=== PATIENT | male | born 1945 | race Caucasian/White ===

== ENCOUNTER 2021-09-09 11:51 | Observation (INO) ==
[2021-09-09] MEDS ORDERED: SODIUM CHLORIDE 0.9% 1000ML 1,000 ML IV ONE (12:12)
[2021-09-09] MEDS ORDERED: ACETAMINOPHEN 1,000 MG/100 ML VIAL IV STA (12:12)
[2021-09-09] MEDS ORDERED: guaiFENesin 600 MG TABCR PO STA (12:16)
[2021-09-09] MEDS ORDERED: SODIUM CHLORIDE 0.65% NA SOLN 45 ML (OCEAN) ONE (12:16)
[2021-09-09] MEDS ORDERED: KETOROLAC TROMETHAMINE 15 MG/ML VIAL IV STA (12:18)
[2021-09-09] MEDS ORDERED: ALBUTEROL HFA 8 GM INHALER INH ONE (12:20)
[2021-09-09 13:30] LABS: Basophils # (auto) 0.04 K/uL (0-0.2); Basophils % (auto) 0.5 %; Eosinophils # (auto) 0.03 K/uL (0-0.5); Eosinophils % (auto) 0.4 %; Hematocrit (blood only) 42.5 % (42-52); Hemoglobin 13.9 g/dL (14.0-18.0); Immature Granulocytes # (auto) 0.01 K/uL (0.00-0.02); Immature Granulocytes % (auto) 0.1 %; Lymphocytes # (auto) 0.44 K/uL (1.2-3.4); Lymphocytes % (auto) 5.8 %; Mean Corpuscular Hemoglobin 29.3 pg (25-34); Mean Corpuscular Hgb Conc 32.7 g/dL (32-36); Mean Corpuscular Volume 89.5 fL (80-100); Mean Platelet Volume 10.6 fL (7.4-10.4); Monocytes # (auto) 1.45 K/uL (0.11-0.59); Monocytes % (auto) 19.2 %; Neutrophils # (auto) 5.57 K/uL (1.4-6.5); Platelet Count 216 K/uL (130-400); RDW Coefficient of Variation 14.2 % (11.5-14.5); RDW Standard Deviation 46.6 fL (36.4-46.3); Red Blood Count 4.75 M/uL (4.7-6.1); White Blood Count 7.54 K/uL (4.8-10.8)
--- NOTE | 2021-09-09 13:36 | XRay Report ---
XR chest 1V portable HISTORY: 76 years-old Male Chest Pain . Acute atypical chest pain COMPARISON: CT abdomen pelvis 06/14/2021 TECHNIQUE: Portable AP view of the chest FINDINGS: The cardiac silhouette is enlarged. No pneumothorax, pleural effusion, airspace consolidation or over t pulmonary edema. Degenerative changes of the shoulders and spine. IMPRESSION: Cardiomegaly without acute process. ACT 112: Negative or not required by law. The above report was generated using voice recognition software. It may contain grammatical, syntax o r spelling errors. Electronically signed by: Roque Brower M.D. 09/09/2021 1:34 PM
[2021-09-09 13:52] LABS: Albumin Globulin Ratio 1.4 (0.9-2); Albumin Level 3.9 gm/dl (3.4-5.0); Bilirubin,Total 0.6 mg/dl (0.2-1.0); Calcium 8.9 mg/dl (8.5-10.1); Creatinine Clr Calc Pharmacy 59.7 ml/min; Est GFR (Non-African American) 73.3 ml/min; Globulin 2.7 gm/dl (2.5-4.0); Magnesium 1.7 mg/dl (1.7-2.4); Phosphorus 2.9 mg/dl (2.5-4.9); Potassium 3.8 mmol/L (3.5-5.1); Total Protein 6.6 gm/dl (6.0-8.3)
[2021-09-09 14:03] LABS: Influenza A virus by PCR Negative (Neg); Influenza B virus by PCR Negative (Neg); RSV by PCR Negative (Neg)
[2021-09-09 14:08] LABS: SARS CoV2 RNA(COVID-19) InHosp POSITIVE (Negative)
[2021-09-09] MEDS ORDERED: dexAMETHasone**PF** 10 MG/ML VIAL IV ONE (15:26)
--- NOTE | 2021-09-09 15:26 | Emergency Department Note ---
Impression & Plan COVID-19, Acute respiratory failure with hypoxia, Chronic steroid use, Polymyalgia rheumatica ED Provider Note NAME: MAYUR WILLARD JR AGE: 76 SEX: M ARRIVES VIA: Walk-In INFORMANT: Patient ED PROVIDER(S): Arnaldo Mason MD CHIEF COMPLAINT: Fever, bodyaches PLAN: Disposition: Admit MEDICAL DECISION MAKING: The patient is a pleasant 76-year-old gentleman with a past medical history of polymyalgia rheumatica on chronic prednisone who presents to the emergency department accompanied by his for evaluation of fevers with cough and congestion over the past several days. He reports initially he was concerned that he had a COVID-19 exposure but describes this as going to dinner with a family friend who had told them that he had "long COVID". Thus, it is unlikely that the patient was knowingly exposed to someone with active COVID-19 inf ection. He reports he is vaccinated for COVID with 2 dose series however did not receive his booster. On arrival patient is fatigued, uncomfortable no distress, with temperature of 37.7, heart rate in the 100s and vital signs otherwise stable. He appears clinically dry. He has mild injection of the posterior pharynx with dry-cracked mucous membranes. Abdomen is benign. EKG without overt acute ischemia. Chest x-ray negative for acute cardiopulmonary process. WBC, HCT and platelets within normal limits. There is mild lymphopenia 0.44K. Chemistry without metabolic acidosis. Electrolytes and LFTs without significant abnormality. High-sensitivity troponin 11.8, within normal limits. Lipase not elevated. Patient's COVID-19 PCR was positive. The patient did develop mild hypoxia at 88% on room air. He was placed on 2 L nasal cannula improvement to 94%. Given the patient's hypoxia in the setting of his COVID-19 infection they did agree with plan for admission. Case was discussed with Dr. Petit, [facility] [place], [facility] hospit[facility] service to evaluate the patient for admission. Triage Nursing notes reviewed and agree them. Prior medical records reviewed Vital Signs: reviewed and remarkable for tachycardia. Differential diagnosis: Viral syndrome, otitis, pharyngitis, pneumonia, influenza, meningitis, urinary tract infection, sepsis, bacteremia, as well as other pathologies. ER treatment provided: See below. Diagnostics interpreted by me: ECG: Normal sinus rhythm, 93 bpm, no ectopy, right bundle branch block, no overt ST elevation or depression, QTC 509, QRS 152 Cardiac Monitoring: An order for continuous cardiac monitoring was placed and demonstrated Normal sinus rhythm, 93 bpm, no ectopy Laboratory studies: See below Imaging studies: See below Consultation(s): Case was discussed with Dr. Petit, [facility], [facility] hospit[facility] to evaluate the patient for admission. HPI: The patient is a pleasant 76-year-old gentleman with a past medical history of polymyalgia rheumatica on chronic prednisone who presents to the emergency department accompanied by his for evaluation of fevers with cough and congestion over the past several days. He reports initially he was concerned that he had a COVID-19 exposure but describes this as going to dinner with a family friend who had told them that he had "long COVID". Thus, it is unlikely that the patient was knowingly exposed to someone with active COVID-19 infection. He reports he is vaccinated for COVID with 2 dose series however did not receive his booster. ROS: See above HPI for pertinent positives & negatives. A total of 10 systems reviewed and were otherwise negative. VITALS:See Below PHYSICAL EXAMINATION: GENERAL: Awake, alert, uncomfortable-appearing, in no distress HENT: Normocephalic, atraumatic. Oropharynx with dry-cracked mucous membranes and otherwise unremarkable. EYES: Normal conjunctiva. Sclera non-icteric. NECK: Supple. No nuchal rigidity. FROM. No JVD. RESPIRATORY: Clear to auscultation. CARDIAC: Tachycardic rate, normal rhythm. Extremities warm and well perfused. Pulses equal. ABDOMEN: Soft, non-distended. No tenderness to palpation. No rebound or guarding. No masses. RECTAL: Deferred. MUSCULOSKELETAL: Chest examination reveals no tenderness. The back is symmetrical on inspection without obvious abnormality. There is no CVA tenderness to palpation. No joint edema. LOWER EXTREMITIES: Calves are equal size bilaterally and non-tender. No edema. No discoloration. NEURO: Normal sensorium. No sensory or motor deficits noted. SKIN: No rash or jaundice noted. Arnaldo Mason MD Past Med/Surg History Medical History BPH w urinary obs/LUTS Cardiac arrhythmia Chronic steroid use Hyperlipidemia Mixed hyperlipidemia Polymyalgia rheumatica Primary hypertension Steroid-induced osteoporosis Surgical History H/O oral surgery H/O total knee replacement History of hernia repair Hx of tonsillectomy 1984 Family History Mother Myocardial infarction Father Myocardial infarction Diabetes Sister Myocardial infarction Diabetes Brother Diabetes Stroke Grandfather (Maternal) Stroke Denies family history of Ovarian cancer Prostate cancer Breast cancer Colorectal cancer Social History Smoking Status: Never smoker Second Hand Exposure: No; Hx Alcohol Use: No Hx Substance Use: No Preferred Language: Taiwanese marital status: Current Living Situation: Spouse current occupational status: retired Feels Safe at Home: Yes Childhood Exposure to Second-Hand Smoke: No Dental Care, Regularly: Yes Physical Activity Frequency: 3-4 Times per Week Seatbelt Use: always Sunscreen Use: No Allergies Allergies Allergy/AdvReac Type Severity Reaction Status Date / Time Beta-Blockers Allergy palpitation Verified 09/09/21 13:35 (Beta-Adrenergic Bloc s hydroxychloroquine Allergy severe Verified 09/09/21 13:35 [From Plaquenil] rash/ GI bleed meclofenamic acid Allergy Verified 09/09/21 13:35 [From Meclomen] tamsulosin AdvReac Intermediate blurry Verified 09/09/21 17:01 vision Home Meds Home Medications Medication Instructions Recorded Confirmed amoxicillin 500 mg capsule 500 mg PO UD PRN 07/04/21 09/09/21 fluticasone propionate 50 1 spray INTRANASAL DAILY PRN 07/04/21 09/09/21 mcg/actuation nasal spray,suspension ketoconazole 2 % topical cream 1 applic TOPICAL DAILY PRN 07/04/21 09/09/21 amlodipine 5 mg tablet 5 mg PO QAM 09/09/21 09/09/21 atorvastatin 20 mg tablet 20 mg PO HS 09/09/21 09/09/21 meloxicam 15 mg tablet 15 mg PO QAM 09/09/21 09/09/21 prednisone 2.5 mg tablet See Rx Instructions .ROUTE .COMPLEX 09/09/21 09/09/21 Previous Rx's Medication Instructions Recorded flecainide 100 mg tablet 100 mg PO Q12H #180 tab 09/05/21 lisinopril 20 mg tablet 20 mg PO BID #90 tab 09/05/21 Results & Data (ED) Vital Signs Vital Signs - 24 hr 09/09/21 12:02 09/09/21 12:54 09/09/21 13:44 Temperature 37.7 C H Temperature Source Oral Pulse Rate 104 H 81 Pulse Rate [Apical] 86 Pulse Rhythm Regular Pulse Rhythm [Apical] Regular Pulse Strength [Apical] Normal Respiratory Rate 20 18 20 Respiratory Effort / Characteristics Non-Labored Spontaneous Non-Labored Spontaneous Respiratory Depth Normal Normal Respiratory Pattern Regular Regular Blood Pressure 157/79 H Blood Pressure [Left Arm] 129/70 Blood Pressure Mean 105 Blood Pressure Mean [Left Arm] 89 Blood Pressure Position [Left Arm] Sitting Pulse Oximetry 93 91 91 Oxygen Delivery Method Room Air Room Air Room Air Oxygen Flow Rate Sepsis Recent Fever Within 48 Hours Yes Sepsis New/Unexplained Change in Mental Status No Sepsis Action Taken by Nursing No Action Required Oxygen Flow Rate - Titration Pulse Oximetry Post Tiitration 09/09/21 13:55 09/09/21 14:30 09/09/21 15:40 Temperature Temperature Source Pulse Rate Pulse Rate [Apical] 82 73 Pulse Rhythm Pulse Rhythm [Apical] Regular Regular Pulse Strength [Apical] Normal Normal Respiratory Rate 20 18 Respiratory Effort / Characteristics Non-Labored Spontaneous Non-Labored Spontaneous Respiratory Depth Normal Normal Respiratory Pattern Regular Regular Blood Pressure Blood Pressure [Left Arm] 117/67 126/69 Blood Pressure Mean Blood Pressure Mean [Left Arm] 83 88 Blood Pressure Position [Left Arm] Sitting Sitting Pulse Oximetry 88 L 92 96 Oxygen Delivery Method Nasal Cannula Nasal Cannula Nasal Cannula Oxygen Flow Rate 0 2 Sepsis Recent Fever Within 48 Hours Sepsis New/Unexplained Change in Mental Status Sepsis Action Taken by Nursing Oxygen Flow Rate - Titration 2 Pulse Oximetry Post Tiitration 96 Laboratory Data Attestation: I reviewed the patient's lab results. Result diagrams: 09/09/21 12:54 09/09/21 12:54 Lab Results 09/09/21 09/09/21 09/09/21 Range/Units 12:50 12:54 12:54 WBC 7.54 (4.8-10.8) K/uL RBC 4.75 (4.7-6.1) M/uL Hgb 13.9 L (14.0-18.0) g/dL Hct 42.5 (42-52) % MCV 89.5 (80-100) fL MCH 29.3 (25-34) pg MCHC 32.7 (32-36) g/dL RDW Std Deviation 46.6 H (36.4-46.3) fL RDW Coeff of [place] 14.2 (11.5-14.5) % Plt Count 216 (130-400) K/uL MPV 10.6 H (7.4-10.4) fL Immature Gran % (Auto) 0.1 % Neut % (Auto) 74.0 % Lymph % (Auto) 5.8 % [place] % (Auto) 19.2 % Eos % (Auto) 0.4 % Baso % (Auto) 0.5 % Neut # (Auto) 5.57 (1.4-6.5) K/uL Lymph # (Auto) 0.44 L (1.2-3.4) K/uL [place] # (Auto) 1.45 H (0.11-0.59) K/uL Eos # (Auto) 0.03 (0-0.5) K/uL Baso # (Auto) 0.04 (0-0.2) K/uL Immature Gran # (Auto) 0.01 (0.00-0.02) K/uL Sodium (136-145) mmol/L Potassium (3.5-5.1) mmol/L Chloride (98-107) mmol/L Carbon Dioxide (21-32) mmol/L Anion Gap (3-11) BUN (6-23) mg/dl Creatinine (0.6-1.4) mg/dl Est Cr Clr Drug Dosing ml/min Est GFR ( Amer) ml/min Est GFR (Non-Af Amer) ml/min BUN/Creatinine Ratio (10-20) Glucose (70-99(Fasting)) mg/dl Calcium (8.5-10.1) mg/dl Phosphorus (2.5-4.9) mg/dl Magnesium (1.7-2.4) mg/dl Total Bilirubin (0.2-1.0) mg/dl AST (13-39) U/L ALT (7-52) U/L Alkaline Phosphatase (34-104) U/L Troponin I High Sens 11.8 (0-20) pg/ml Total Protein (6.0-8.3) gm/dl Albumin (3.4-5.0) gm/dl Globulin (2.5-4.0) gm/dl Albumin/Globulin Ratio (0.9-2) Lipase (11-82) U/L Urine Color Urine Appearance (Clear) Urine pH (4.5-7.5) Ur Specific [place] (1.000-1.030) Urine Protein (Negative) Urine Glucose (UA) (Negative) Urine Ketones (Negative) Urine Blood (Negative) Urine Nitrite (Negative) Urine Bilirubin (Negative) Urine Urobilinogen (Negative) Ur Leukocyte Esterase (Negative) SARS-CoV-2 (PCR) POSITIVE A* (Negative) Influenza Type A (PCR) Negative (Neg) Influenza Type B (PCR) Negative (Neg) RSV (RT-PCR) Negative (Neg) 09/09/21 09/09/21 Range/Units 12:54 15:17 WBC (4.8-10.8) K/uL RBC (4.7-6.1) M/uL Hgb (14.0-18.0) g/dL Hct (42-52) % MCV (80-100) fL MCH (25-34) pg MCHC (32-36) g/dL RDW Std Deviation (36.4-46.3) fL RDW Coeff of [place] (11.5-14.5) % Plt Count (130-400) K/uL MPV (7.4-10.4) fL Immature Gran % (Auto) % Neut % (Auto) % Lymph % (Auto) % [place] % (Auto) % Eos % (Auto) % Baso % (Auto) % Neut # (Auto) (1.4-6.5) K/uL Lymph # (Auto) (1.2-3.4) K/uL [place] # (Auto) (0.11-0.59) K/uL Eos # (Auto) (0-0.5) K/uL Baso # (Auto) (0-0.2) K/uL Immature Gran # (Auto) (0.00-0.02) K/uL Sodium 137 (136-145) mmol/L Potassium 3.8 (3.5-5.1) mmol/L Chloride 102 (98-107) mmol/L Carbon Dioxide 26 (21-32) mmol/L Anion Gap 9 (3-11) BUN 13 (6-23) mg/dl Creatinine 1.00 (0.6-1.4) mg/dl Est Cr Clr Drug Dosing 59.7 ml/min Est GFR ( Amer) 85.0 ml/min Est GFR (Non-Af Amer) 73.3 ml/min BUN/Creatinine Ratio 13.0 (10-20) Glucose 97 (70-99(Fasting)) mg/dl Calcium 8.9 (8.5-10.1) mg/dl Phosphorus 2.9 (2.5-4.9) mg/dl Magnesium 1.7 (1.7-2.4) mg/dl Total Bilirubin 0.6 (0.2-1.0) mg/dl AST 22 (13-39) U/L ALT 18 (7-52) U/L Alkaline Phosphatase 47 (34-104) U/L Troponin I High Sens (0-20) pg/ml Total Protein 6.6 (6.0-8.3) gm/dl Albumin 3.9 (3.4-5.0) gm/dl Globulin 2.7 (2.5-4.0) gm/dl Albumin/Globulin Ratio 1.4 (0.9-2) Lipase 35 (11-82) U/L Urine Color Yellow Urine Appearance Clear (Clear) Urine pH 7.5 (4.5-7.5) Ur Specific [place] 1.007 (1.000-1.030) Urine Protein Negative (Negative) Urine Glucose (UA) Negative (Negative) Urine Ketones Negative (Negative) Urine Blood Negative (Negative) Urine Nitrite Negative (Negative) Urine Bilirubin Negative (Negative) Urine Urobilinogen Negative (Negative) Ur Leukocyte Esterase Negative (Negative) SARS-CoV-2 (PCR) (Negative) Influenza Type A (PCR) (Neg) Influenza Type B (PCR) (Neg) RSV (RT-PCR) (Neg) Administered Medications Albuterol (Albuterol Hfa 8 Gm Inhaler) 2 puffs INH TIDR YARI Stop: 10/09/21 18:59 Last Admin: 09/09/21 20:25 Dose: 2 puffs Documented by: [id number] Atorvastatin Calcium (Atorvastatin 20 Mg Tab) 20 mg PO HS YARI Stop: 10/09/21 20:59 Last Admin: 09/09/21 21:04 Dose: 20 mg Documented by: [id number] Enoxaparin Sodium (Enoxaparin Inj 40 Mg/0.4 Ml Syr) 40 mg SQ Q24H YARI Stop: 10/09/21 20:59 Last Admin: 09/09/21 21:05 Dose: 40 mg Documented by: [id number] Flecainide Acetate (Flecainide Acetate 100 Mg Tablet) 100 mg PO Q12 YARI Stop: 10/09/21 19:59 Last Admin: 09/09/21 21:04 Dose: 100 mg Documented by: [id number] Lisinopril (Lisinopril 20 Mg Tab) 20 mg PO BID YARI Stop: 10/09/21 20:59 Last Admin: 09/09/21 21:05 Dose: 20 mg Documented by: [id number] Discontinued Medications Albuterol (Albuterol Hfa 8 Gm Inhaler) 2 puffs INH NOW ONE Stop: 09/09/21 12:21 Last Admin: 09/09/21 12:55 Dose: 2 puffs Documented by: [id number] Dexamethasone Sodium Phosphate (DexamethasonePf 10 Mg/Ml Vial) 10 mg IV NOW ONE Stop: 09/09/21 15:27 Last Admin: 09/09/21 15:52 Dose: 10 mg Documented by: [id number] Guaifenesin (Guaifenesin 600 Mg Tabcr) 600 mg PO NOW STA Stop: 09/09/21 12:17 Last Admin: 09/09/21 12:55 Dose: Not Given Documented by: [id number] Sodium Chloride (Nss 1000ml) 1,000 mls @ 999 mls/hr IV .Q1H1M ONE Stop: 09/09/21 13:12 Last Infusion: 09/09/21 13:55 Dose: 0 mls/hr Documented by: [id number] Admin: 09/09/21 12:55 Dose: 999 mls/hr Documented by: [id number] Acetaminophen (Ofirmev) 1,000 mg in 100 mls @ 400 mls/hr IV NOW STA Stop: 09/09/21 12:26 Last Infusion: 09/09/21 13:14 Dose: 0 mls/hr Documented by: [id number] Admin: 09/09/21 12:54 Dose: 400 mls/hr Documented by: [id number] Remdesivir 200 mg/ Sodium (Chloride) 250 mls @ 125 mls/hr IV ONE STA; Protocol Stop: 09/09/21 18:54 Last Infusion: 09/09/21 20:53 Dose: 0 mls/hr Documented by: [id number] Admin: 09/09/21 18:10 Dose: 125 mls/hr Documented by: [id number] Ketorolac Tromethamine (Ketorolac Tromethamine 15 Mg/Ml Vial) 15 mg IV NOW STA Stop: 09/09/21 12:19 Last Admin: 09/09/21 12:54 Dose: 15 mg Documented by: [id number] Sodium Chloride (Sodium Chloride 0.65% Na Soln 45 Ml ([place])) 2 sprays NA NOW ONE Stop: 09/09/21 12:17 Last Admin: 09/09/21 12:55 Dose: 2 sprays Documented by: [id number] Imaging Data Radiologist's Impression: Chest X-Ray 09/09/21 12:13 XR chest 1V portable HISTORY: 76 years-old Male Chest Pain . Acute atypical chest pain COMPARISON: CT abdomen pelvis 06/14/2021 TECHNIQUE: Portable AP view of the chest FINDINGS: The cardiac silhouette is enlarged. No pneumothorax, pleural effusion, airspace consolidation or overt pulmonary edema. Degenerative changes of the shoulders and spine. IMPRESSION: Cardiomegaly without acute process. ACT 112: Negative or not required by law. The above report was generated using voice recognition software. It may contain grammatical, syntax or spelling errors. Electronically signed by: Roque Brower M.D. 09/09/2021 1:34 PM Discharge Plan Visit Data Chief Complaint: Fever Stated Complaint: FEVER/EXTREME FATIGUE ED Provider: Arnaldo Mason Discharge Problem: COVID-19, Acute respiratory failure with hypoxia, Chronic steroid use, Polymyalgia rheumatica Patient Disposition: Admitted As Inpatient Discharge Instructions Interventions: ED Discharge Assessment Last Done: 09/09/21 18:25
[2021-09-09 15:41] LABS: Appearance Urine Clear (Clear); Bilirubin Urine Negative (Negative); Blood Urine Negative (Negative); Color Urine Yellow; Glucose Urine UA Negative (Negative); Ketones Urine Negative (Negative); Leukocyte Esterase Urine Negative (Negative); Nitrite Urine Negative (Negative); Protein Urine Negative (Negative); Specific Gravity Urine 1.007 (1.000-1.030); Urobilinogen Urine Negative (Negative); pH Urine 7.5 (4.5-7.5)
--- NOTE | 2021-09-09 16:03 | History & Physical Report ---
Date of Service September 09, 2021 Assessment & Plan (1) Acute respiratory failure with hypoxia: Plan: Secondary to COVID-19 pneumonitis, pulse ox down to 88% with exertion prior to admission Chest x-ray without pneumonia No history of underlying lung disease Already with significant improvement with IV Decadron, albuterol -Bring in on observation to medical floor telemetry -Continue supplemental O2 to keep pulse ox greater than 90% -Treat with IV Decadron -Continue albuterol inhaler every 8 hours scheduled -Incentive spirometry, flutter valve to be provided -He will likely need a two-step walk test prior to discharge (2) COVID-19: Plan: Presents on day #3 of symptoms-symptoms started on 09/07 He has received 2 doses of COVID vaccination but not a booster He has mild hypoxia as above, nasal congestion, mild nausea without vomiting, and profound fatigue, fevers Labs only significant for lymphopenia, but LFTs normal, renal function normal -Start Remdesivir -Continue Decadron 6 mg IV once daily-this will also serve as stress dose steroids as he is on chronic prednisone -Tylenol as needed for fevers -Monitor for worsening have hypoxia -Check CBC, CMP, CRP in the morning -Continue supplemental O2 as needed to keep pulse ox greater than 90% (3) Cardiac arrhythmia: Plan: Has a history of frequent PVCs now well controlled on flecainide Continue flecainide 100 mg p.o. twice daily Monitor on telemetry Keep electrolytes replete (4) Steroid-induced osteoporosis: Plan: Not on medications for this (5) Mixed hyperlipidemia: Plan: Continue atorvastatin 20 mg at bedtime (6) Primary hypertension: Plan: Blood pressures here are controlled Continue home amlodipine 5 mg daily, lisinopril 20 mg p.o. twice daily (7) Chronic steroid use: Plan: Usually on prednisone 7.5 mg daily Giving stress to steroids and affect with Decadron 6 mg IV once daily here (8) BPH w urinary obs/LUTS: Plan: Had an allergic reaction to tamsulosin-no longer taking Will add to allergy list (9) Polymyalgia rheumatica: Plan: Continue on steroids daily Plan: DVT prophylaxis-SCDs, Lovenox SQ Disposition-bring in on observation to medical floor with telemetry, two-step walk test likely tomorrow if he is continuing to be improved and could potentially discharge home tomorrow with home oxygen Full code, but would not want prolonged life support if in a vegetative state All care discussed with at the bedside History of Present Illness Chief Complaint: Fevers, cough Primary Care Provider: Angelica Persaud MD This patient is a 76-year-old male with history of HTN, PMR on chronic steroids, hyperlipidemia, 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 He started with postnasal drip and nasal congestion 2 days ago which then improved but then he started feeling very weak, fatigued, and spiked a fever to 100.5 at home. In the ER, he was noted to be mildly tachycardic and appeared dehydrated. His blood work was fairly unremarkable except for mild lymphopenia, and his COVID-19 test was positive. He is vaccinated x2 but not boosted. He developed mild hypoxia with a pulse ox of 88% on room air and was placed on 2 L nasal cannula with improvement to 94% in the ER. His chest x-ray was negative for pneumonia. When I came to see him, he was feeling much better after the treatments given in the ER and he was 95 to 96% on room air at rest, but reported he dropped to 88% with movement with walking to the bathroom. Vital signs were otherwise normal except for a mildly elevated temperature at 37.7. He will be admitted for COVID-19 with likely pneumonitis and acute respiratory failure with hypoxia He was given albuterol, guaifenesin, Toradol, 1 L of normal saline, IV Tylenol, and 10 mg of IV Decadron in the ER. Allergies Allergy/AdvReac Type Severity Reaction Status Date / Time Beta-Blockers Allergy palpitation Verified 09/09/21 13:35 (Beta-Adrenergic Bloc s hydroxychloroquine Allergy severe Verified 09/09/21 13:35 [From Plaquenil] rash/ GI bleed meclofenamic acid Allergy Verified 09/09/21 13:35 [From Meclomen] tamsulosin AdvReac Intermediate blurry Verified 09/09/21 17:01 vision Home Medications Medication Instructions Recorded Confirmed Type amoxicillin 500 mg capsule 500 mg PO UD PRN 07/04/21 09/09/21 History fluticasone propionate 50 1 spray INTRANASAL DAILY PRN 07/04/21 09/09/21 History mcg/actuation nasal spray,suspension ketoconazole 2 % topical cream 1 applic TOPICAL DAILY PRN 07/04/21 09/09/21 History flecainide 100 mg tablet 100 mg PO Q12H #180 tab 09/05/21 09/09/21 Rx lisinopril 20 mg tablet 20 mg PO BID #90 tab 09/05/21 09/09/21 Rx amlodipine 5 mg tablet 5 mg PO QAM 09/09/21 09/09/21 History atorvastatin 20 mg tablet 20 mg PO HS 09/09/21 09/09/21 History meloxicam 15 mg tablet 15 mg PO QAM 09/09/21 09/09/21 History prednisone 2.5 mg tablet See Rx Instructions .ROUTE .COMPLEX 09/09/21 09/09/21 History Past Med/Surg History Medical History BPH w urinary obs/LUTS Cardiac arrhythmia Chronic steroid use Hyperlipidemia Mixed hyperlipidemia Polymyalgia rheumatica Primary hypertension Steroid-induced osteoporosis Surgical History H/O oral surgery H/O total knee replacement History of hernia repair Hx of tonsillectomy 1984 Family History Mother Myocardial infarction Father Myocardial infarction Diabetes Sister Myocardial infarction Diabetes Brother Diabetes Stroke Grandfather (Maternal) Stroke Denies family history of Ovarian cancer Prostate cancer Breast cancer Colorectal cancer Social History Smoking Status: Never smoker Second Hand Exposure: No; Hx Alcohol Use: Yes (Wine several times a year ) Alcohol type: wine Alcohol Intake Frequency: Monthly or Less Hx Substance Use: No Preferred Language: Urdu marital status: Current Living Situation: Spouse current occupational status: retired Feels Safe at Home: Yes Childhood Exposure to Second-Hand Smoke: No Dental Care, Regularly: Yes Physical Activity Frequency: 3-4 Times per Week Seatbelt Use: always Sunscreen Use: No Review of Systems Review of Systems: All systems reviewed & are unremarkable except as noted in HPI & below Physical Exam Constitutional: WD/WN, vitals as above Eyes: PERRL, conjunctivae normal, anicteric sclerae ENMT: external ear and nose normal, oropharynx normal Neck: trachea midline, no thyromegaly Respiratory: normal respiratory effort, lungs clear to auscultation Cardiovascular: RRR, no murmur, no edema Chest (Breasts): Chest: normal inspection of chest Gastrointestinal (Abdomen): normal bowel sounds, soft, nontender, no hepatosplenomegaly Musculoskeletal: Extremities: extremities normal to inspection; no cyanosis and no clubbing Skin: no rashes, warm and dry Neurologic: moves all extremities and awake; no focal motor deficits Psychiatric: A+Ox3, euthymic affect Lymphatic: no lymphedema Results & Data Results & Data ([facility]) Vital Signs (Past 12 Hours) Vital Signs Temp Pulse Pulse Resp BP BP Pulse Ox 09/09/21 15:40 73 18 126/69 96 09/09/21 14:30 82 20 117/67 92 09/09/21 13:55 88 L 09/09/21 13:44 81 20 91 09/09/21 12:54 86 18 129/70 91 09/09/21 12:02 37.7 C H 104 H 20 157/79 H 93 Laboratory Results 09/09/21 09/09/21 09/09/21 Range/Units 15:17 12:54 12:54 WBC 7.54 (4.8-10.8) K/uL RBC 4.75 (4.7-6.1) M/uL Hgb 13.9 L (14.0-18.0) g/dL Hct 42.5 (42-52) % MCV 89.5 (80-100) fL MCH 29.3 (25-34) pg MCHC 32.7 (32-36) g/dL RDW Std Deviation 46.6 H (36.4-46.3) fL RDW Coeff of Clark 14.2 (11.5-14.5) % Plt Count 216 (130-400) K/uL MPV 10.6 H (7.4-10.4) fL Immature Gran % (Auto) 0.1 % Neut % (Auto) 74.0 % Lymph % (Auto) 5.8 % [place] % (Auto) 19.2 % Eos % (Auto) 0.4 % Baso % (Auto) 0.5 % Neut # (Auto) 5.57 (1.4-6.5) K/uL Lymph # (Auto) 0.44 L (1.2-3.4) K/uL [place] # (Auto) 1.45 H (0.11-0.59) K/uL Eos # (Auto) 0.03 (0-0.5) K/uL Baso # (Auto) 0.04 (0-0.2) K/uL Immature Gran # (Auto) 0.01 (0.00-0.02) K/uL Sodium 137 (136-145) mmol/L Potassium 3.8 (3.5-5.1) mmol/L Chloride 102 (98-107) mmol/L Carbon Dioxide 26 (21-32) mmol/L Anion Gap 9 (3-11) BUN 13 (6-23) mg/dl Creatinine 1.00 (0.6-1.4) mg/dl Est Cr Clr Drug Dosing 59.7 ml/min Est GFR ( Amer) 85.0 ml/min Est GFR (Non-Af Amer) 73.3 ml/min BUN/Creatinine Ratio 13.0 (10-20) Glucose 97 (70-99(Fasting)) mg/dl Calcium 8.9 (8.5-10.1) mg/dl Phosphorus 2.9 (2.5-4.9) mg/dl Magnesium 1.7 (1.7-2.4) mg/dl Total Bilirubin 0.6 (0.2-1.0) mg/dl AST 22 (13-39) U/L ALT 18 (7-52) U/L Alkaline Phosphatase 47 (34-104) U/L Troponin I High Sens (0-20) pg/ml Total Protein 6.6 (6.0-8.3) gm/dl Albumin 3.9 (3.4-5.0) gm/dl Globulin 2.7 (2.5-4.0) gm/dl Albumin/Globulin Ratio 1.4 (0.9-2) Lipase 35 (11-82) U/L Urine Color Yellow Urine Appearance Clear (Clear) Urine pH 7.5 (4.5-7.5) Ur Specific [place] 1.007 (1.000-1.030) Urine Protein Negative (Negative) Urine Glucose (UA) Negative (Negative) Urine Ketones Negative (Negative) Urine Blood Negative (Negative) Urine Nitrite Negative (Negative) Urine Bilirubin Negative (Negative) Urine Urobilinogen Negative (Negative) Ur Leukocyte Esterase Negative (Negative) SARS-CoV-2 (PCR) (Negative) Influenza Type A (PCR) (Neg) Influenza Type B (PCR) (Neg) RSV (RT-PCR) (Neg) 09/09/21 09/09/21 Range/Units 12:54 12:50 WBC (4.8-10.8) K/uL RBC (4.7-6.1) M/uL Hgb (14.0-18.0) g/dL Hct (42-52) % MCV (80-100) fL MCH (25-34) pg MCHC (32-36) g/dL RDW Std Deviation (36.4-46.3) fL RDW Coeff of Clark (11.5-14.5) % Plt Count (130-400) K/uL MPV (7.4-10.4) fL Immature Gran % (Auto) % Neut % (Auto) % Lymph % (Auto) % [place] % (Auto) % Eos % (Auto) % Baso % (Auto) % Neut # (Auto) (1.4-6.5) K/uL Lymph # (Auto) (1.2-3.4) K/uL [place] # (Auto) (0.11-0.59) K/uL Eos # (Auto) (0-0.5) K/uL Baso # (Auto) (0-0.2) K/uL Immature Gran # (Auto) (0.00-0.02) K/uL Sodium (136-145) mmol/L Potassium (3.5-5.1) mmol/L Chloride (98-107) mmol/L Carbon Dioxide (21-32) mmol/L Anion Gap (3-11) BUN (6-23) mg/dl Creatinine (0.6-1.4) mg/dl Est Cr Clr Drug Dosing ml/min Est GFR ( Amer) ml/min Est GFR (Non-Af Amer) ml/min BUN/Creatinine Ratio (10-20) Glucose (70-99(Fasting)) mg/dl Calcium (8.5-10.1) mg/dl Phosphorus (2.5-4.9) mg/dl Magnesium (1.7-2.4) mg/dl Total Bilirubin (0.2-1.0) mg/dl AST (13-39) U/L ALT (7-52) U/L Alkaline Phosphatase (34-104) U/L Troponin I High Sens 11.8 (0-20) pg/ml Total Protein (6.0-8.3) gm/dl Albumin (3.4-5.0) gm/dl Globulin (2.5-4.0) gm/dl Albumin/Globulin Ratio (0.9-2) Lipase (11-82) U/L Urine Color Urine Appearance (Clear) Urine pH (4.5-7.5) Ur Specific [place] (1.000-1.030) Urine Protein (Negative) Urine Glucose (UA) (Negative) Urine Ketones (Negative) Urine Blood (Negative) Urine Nitrite (Negative) Urine Bilirubin (Negative) Urine Urobilinogen (Negative) Ur Leukocyte Esterase (Negative) SARS-CoV-2 (PCR) POSITIVE A* (Negative) Influenza Type A (PCR) Negative (Neg) Influenza Type B (PCR) Negative (Neg) RSV (RT-PCR) Negative (Neg) Diagnostic Findings Chest x-ray image personally reviewed by me and agree with the following report: Chest X-Ray 09/09/21 12:13 XR chest 1V portable HISTORY: 76 years-old Male Chest Pain . Acute atypical chest pain COMPARISON: CT abdomen pelvis 06/14/2021 TECHNIQUE: Portable AP view of the chest FINDINGS: The cardiac silhouette is enlarged. No pneumothorax, pleural effusion, airspace consolidation or overt pulmonary edema. Degenerative changes of the shoulders and spine. IMPRESSION: Cardiomegaly without acute process. ACT 112: Negative or not required by law. The above report was generated using voice recognition software. It may contain grammatical, syntax or spelling errors. Electronically signed by: Roque Brower M.D. 09/09/2021 1:34 PM ECG Additional Comments: ECG on 09/09/2021 at 1240 with normal sinus rhythm, rate 93, right bundle branch block, no old EKGs to compare to but old cardiology reports chronic RBBB Code Status & VTE Plan Code Status Full code, but would not want prolonged life support if in a vegetative state VTE Prophylaxis Plan VTE Prophylaxis will be ordered: Yes PG Care Time/CCT Total # of Minutes Spent Total Time Spent with Patient: Total time spent is greater than 50% in coordination of care (as documented) at patient's floor/unit and/or counseling patient: Coding Level of Care Code INT OBSERVATION CARE 70M LVL 3 Diagnoses BPH w urinary obs/LUTS N40.1; N13.8 Cardiac arrhythmia I49.9 Steroid-induced osteoporosis M81.8; T38.0X5A Mixed hyperlipidemia E78.2 Primary hypertension I10 Chronic steroid use Polymyalgia rheumatica M35.3 COVID-19 U07.1 Acute respiratory failure with hypoxia J96.01
[2021-09-09] MEDS ORDERED: REMDESIVIR 200 MG in SODIUM CHLORIDE 0.9% 210 ML IV STA (16:55)
[2021-09-09] MEDS ORDERED: POLYETHYLENE (MIRALAX) 17 GM PACK PO PRN (19:10)
[2021-09-09] MEDS ORDERED: ALUMINUM/MAGNESIUM SUSP 30 ML UDC PO PRN (19:10)
[2021-09-09] MEDS ORDERED: ONDANSETRON INJ 2 MG/ML 2 ML VIAL IV PRN (19:10)
[2021-09-09] MEDS ORDERED: FLUTICASONE PROPIONATE NA SPR 16 GM BTL NAE PRN (19:10)
[2021-09-09] MEDS ORDERED: ACETAMINOPHEN 325 MG TAB PO PRN (19:10)
[2021-09-09] MEDS ORDERED: MAGNESIUM HYDROXIDE SUSP 30 ML UDC PO PRN (19:10)
[2021-09-09] MEDS: ALBUTEROL HFA 8 GM INHALER INH SCH (20:25)
[2021-09-09] MEDS ORDERED: ENOXAPARIN INJ 40 MG/0.4 ML SYR SQ SCH (21:00)
[2021-09-09] MEDS ORDERED: ATORVASTATIN 20 MG TAB PO SCH (21:00)
[2021-09-09] MEDS: FLECAINIDE ACETATE 100 MG TABLET PO SCH (21:04)
[2021-09-09] MEDS: lisinopril 20 MG TAB PO SCH (21:05)
[2021-09-10 05:28] LABS: Basophils # (auto) 0.01 K/uL (0-0.2); Basophils % (auto) 0.2 %; Hematocrit (blood only) 42.8 % (42-52); Hemoglobin 14.1 g/dL (14.0-18.0); Immature Granulocytes # (auto) 0.01 K/uL (0.00-0.02); Immature Granulocytes % (auto) 0.2 %; Lymphocytes # (auto) 0.42 K/uL (1.2-3.4); Lymphocytes % (auto) 9.2 %; Mean Corpuscular Hemoglobin 29.4 pg (25-34); Mean Corpuscular Hgb Conc 32.9 g/dL (32-36); Mean Corpuscular Volume 89.4 fL (80-100); Mean Platelet Volume 10.3 fL (7.4-10.4); Monocytes % (auto) 6.6 %; Neutrophils # (auto) 3.82 K/uL (1.4-6.5); Neutrophils % (auto) 83.8 %; Platelet Count 218 K/uL (130-400); RDW Coefficient of Variation 14.1 % (11.5-14.5); RDW Standard Deviation 46.3 fL (36.4-46.3); Red Blood Count 4.79 M/uL (4.7-6.1); White Blood Count 4.56 K/uL (4.8-10.8)
[2021-09-10 05:43] LABS: Albumin Globulin Ratio 1.4 (0.9-2); Albumin Level 3.8 gm/dl (3.4-5.0); BUN Creatinine Ratio 25.6 (10-20); Bilirubin,Total 0.4 mg/dl (0.2-1.0); C Reactive Protein 1.17 mg/dl (0-0.5); Calcium 8.7 mg/dl (8.5-10.1); Creatinine Clr Calc Pharmacy 69.4 ml/min; Est GFR (African American) 98.3 ml/min; Est GFR (Non-African American) 84.8 ml/min; Globulin 2.8 gm/dl (2.5-4.0); Magnesium 1.9 mg/dl (1.7-2.4); Potassium 3.8 mmol/L (3.5-5.1); Total Protein 6.6 gm/dl (6.0-8.3)
[2021-09-10] MEDS: ALBUTEROL HFA 8 GM INHALER INH SCH ×2 (07:32→12:31)
[2021-09-10] MEDS: lisinopril 20 MG TAB PO SCH (08:00)
[2021-09-10] MEDS: FLECAINIDE ACETATE 100 MG TABLET PO SCH (08:00)
[2021-09-10] MEDS ORDERED: amLODIPine BESYLATE 5 MG TAB PO SCH (09:00)
[2021-09-10] MEDS ORDERED: MELOXICAM 7.5 MG TAB PO SCH (09:00)
[2021-09-10] MEDS ORDERED: dexAMETHasone 6 MG in SYRINGE 0 ML IV SCH (09:00)
[2021-09-10] MEDS ORDERED: REMDESIVIR 100 MG in SODIUM CHLORIDE 0.9% 230 ML IV SCH ×2 (13:00→20:00)
--- NOTE | 2021-09-10 14:30 | Discharge Summary ---
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 He started with postnasal drip and nasal congestion 2 days ago which then improved but then he started feeling very weak, fatigued, and spiked a fever to 100.5 at home. In the ER, he was noted to be mildly tachycardic and appeared dehydrated. His blood work was fairly unremarkable except for mild lymphopenia, and his COVID-19 test was positive. H e is vaccinated x2 but not boosted. He developed mild hypoxia with a pulse ox of 88% on room air and was placed on 2 L nasal cannula with improvement to 94% in the ER. His chest x-ray was negative for pneumonia. When I came to see him, he was feeling much better after the treatments given in the ER and he was 95 to 96% on room air at rest, but reported he dropped to 88% with movement with walki ng to the bathroom. Vital signs were otherwise normal except for a mildly elevated temperature at 37.7. He will be admitted for COVID-19 with likely pneumonitis and acute respiratory failure with hypoxia He was given albuterol, guaifenesin, Toradol, 1 L of normal saline, IV Tylenol, and 10 mg of IV Decadron in the ER. Principal Diagnosis COVID-19, Acute respiratory failure with hypoxia Discharge Exam Constitutional WD/WN, vitals as above Eyes PERRL, conjunctivae normal, anicteric sclerae ENMT external ear and nose normal, oropharynx normal Neck trachea midline, no thyromegaly Respiratory normal respiratory effort, lungs clear to auscultation Cardiovascular RRR, no murmur, no edema Chest (Breasts) Chest: normal inspection of chest Gastrointestinal (Abdomen) normal bowel sounds, soft, nontender, no hepatosplenomegaly Musculoskeletal Extremities: extremities normal to inspection; no cyanosis and no clubbing Skin no rashes, warm and dry Neurologic moves all extremities and awake; no focal motor deficits Psychiatric A+Ox3, euthymic affect Lymphatic no lymphedema Discharge Data Allergies Allergy/AdvReac Type Severity Reaction Status Date / Time Beta-Blockers Allergy palpitation Verified 09/09/21 13:35 (Beta-Adrenergic Bloc s hydroxychloroquine Allergy severe Verified 09/09/21 13:35 [From Plaquenil] rash/ GI bleed meclofenamic acid Allergy Verified 09/09/21 13:35 [From Meclomen] tamsulosin AdvReac Intermediate blurry Verified 09/09/21 17:01 vision Consultations 09/09/21 15:18 ED Decision to Admit Stat Hospital Course (1) Acute respiratory failure with hypoxia: Secondary to COVID-19 pneumonitis, pulse ox down to 88% with exertion prior to admission Chest x-ray without pneumonia No history of underlying lung disease Already with significant improvement with IV Decadron, albuterol Weaned off O2 and passed a 2 step walk test on day of discharge -Treated with IV Decadron and will continue 10 day course as outpatient after discharge, then return to usual home prednisone -Continue albuterol inhaler as needed at home-prescribed -Incentive spirometry, flutter valve to be provided -He will likely need a two-step walk test prior to discharge Doing well, stable for dc to home (2) COVID-19: Presents on day #3 of symptoms-symptoms started on 09/07 He has received 2 doses of COVID vaccination but not a booster He has mild hypoxia as above, nasal congestion, mild nausea without vomiting, and profound fatigue, fevers Labs only significant for lymphopenia, but LFTs normal, renal function normal -Started Remdesivir and received 2 doses prior to discharge-no need to continue after discharge -received Decadron 6 mg IV once daily-this will also serve as stress dose steroids as he is on chronic prednisone-finsih course after dc as above -Tylenol as needed for fevers (3) Cardiac arrhythmia: Has a history of frequent PVCs now well controlled on flecainide Continue flecainide 100 mg p.o. twice daily Monitor on telemetry-no arrhythmias here (4) Steroid-induced osteoporosis: Not on medications for this (5) Mixed hyperlipidemia: Continue atorvastatin 20 mg at bedtime (6) Primary hypertension: Blood pressures here are controlled Continue home amlodipine 5 mg daily, lisinopril 20 mg p.o. twice daily (7) Chronic steroid use: Usually on prednisone 7.5 mg daily Giving stress to steroids with Decadron 6 mg IV once daily here (8) BPH w urinary obs/LUTS: Had an allergic reaction to tamsulosin-no longer taking added to allergy list (9) Polymyalgia rheumatica: Continue on steroids daily DVT prophylaxis-SCDs, Lovenox SQ Disposition-stable for dc to home Total Time Total Time Spent Total Time Spent (In Minutes): 35 min Discharge Plan Discharge Items Patient Disposition: Home - Self-Care Reason For Visit: COVID 19 HYPOXIA Discharge Diagnosis: COVID-19 Pneumonitis, Acute respiratory failure with hypoxia Condition on Discharge: Good Activity: Resume your previous activity Non-emergency contact: Primary Care Provider Call non-emergency contact if: you have any medication questions and your symptoms worsen Follow-up/Referrals: Angelica Persaud MD [Primary Care Provider] - (PLEASE CALL YOUR PRIMARY CARE PROVIDER TO SCHEDULE A DISCHARGE FOLLOW-UP APPOINTMENT WITHIN 7-10 DAYS.) Diet: Heart Healthy Addtl Attending Provider Instructions: Please finish out 8 more days of the dexamethasone and then revert back to your usual prednisone dosing. You can use the albuterol inhaler every 6 hours as needed for cough or shortness of breath. You can take Tylenol as needed for fevers. Please continue to check your oxygen saturation levels at home with your pulse oximeter. If your levels go below 88%, please return to the hospital. If you develop worsening shortness of breath, leg swelling, chest pains, or any other acute concerns, please return to the hospital. Continue to walk around frequently to prevent blood clots from forming. You should remain isolated for one more week in quarantine. You did not need oxygen on the day of discharge. Follow up with your PCP in 1-2 weeks. Pending Studies at Discharge: No Stand-Alone Forms: My [facility] Medications and DC Order Prescriptions: New albuterol sulfate [Ventolin HFA] 90 mcg/actuation Hfa Aerosol Inhaler 2 puff inhalation Q6H PRN (Reason: shortness of breath or wheezing) Qty: 8.5 RF: 0 acetaminophen 325 mg Tablet 650 mg PO Q4H PRN (Reason: fever or pain) Qty: 30 RF: 0 dexamethasone 6 mg tablet 6 mg PO DAILY Qty: 8 RF: 0 Continued lisinopril 20 mg tablet 20 mg PO BID Qty: 90 RF: 3 flecainide 100 mg tablet 100 mg PO Q12H Qty: 180 RF: 3 ketoconazole 2 % cream 1 applic topical DAILY PRN (Reason: Rash) RF: 0 fluticasone propionate 50 mcg/actuation spray,suspension 1 spray intranasal DAILY PRN (Reason: Congestion) RF: 0 amoxicillin 500 mg capsule 500 mg PO UD PRN (Reason: dental appointments) RF: 0 atorvastatin 20 mg tablet 20 mg PO HS RF: 0 meloxicam 15 mg tablet 15 mg PO QAM RF: 0 amlodipine 5 mg tablet 5 mg PO QAM RF: 0 prednisone 2.5 mg tablet See Rx Instructions .ROUTE .COMPLEX RF: 0 Discharge Orders: Discharge Order (Routine); Ordered 09/10/21 Ordered By: Tracee Vasquez Admission Data Admit Date/Time: 09/09/21 16:55 Attending Provider: Tracee Vasquez Admit Provider: Tracee Vasquez Primary Care Provider: Angelica Persaud Other Providers: Tim Petit Other Interventions: Discharge Summary Assessment (RN) Last Done: 09/10/21 13:38 Coding Level of Care Code 78232 OBS Care - Discharge Diagnoses Acute respiratory failure with hypoxia J96.01 COVID-19 U07.1 Cardiac arrhythmia I49.9 Steroid-induced osteoporosis M81.8; T38.0X5A Mixed hyperlipidemia E78.2 Primary hypertension I10 Chronic steroid use BPH w urinary obs/LUTS N40.1; N13.8 Polymyalgia rheumatica M35.3
--- NOTE | 2021-09-10 22:13 | Electrocardiogram Report ---
Test Reason : Blood Pressure : / mmHG Vent. Rate : 093 BPM Atrial Rate : 093 BPM P-R Int : 156 ms QRS Dur : 152 ms QT Int : 410 ms P-R-T Axes : 036 101 017 degrees QTc Int : 509 ms Normal sinus rhythm Right bundle branch block Abnormal ECG No previous ECGs available Confirmed by Rex Camejo ([id number]) on 09/10/2021 10:12:58 PM Referred By: REFERRED SELF Confirmed By:Rex Camejo
== END 2021-09-10 15:07 | disposition home or self-care (01) ==
LOC: 2N 11:51 → ED 11:51 → 2N 18:25

== ENCOUNTER 2023-09-01 09:32 | Observation (INO) ==
[2023-09-01 10:28] LABS: Basophils # (auto) 0.03 K/uL (0.00-0.20); Basophils % (auto) 0.3 %; Eosinophils % (auto) 1.1 %; Hematocrit (blood only) 45.1 % (42.0-52.0); Hemoglobin 14.6 g/dl (14.0-18.0); Immature Granulocytes # (auto) 0.04 K/uL (0.01-0.20); Immature Granulocytes % (auto) 0.4 %; Lymphocytes # (auto) 0.82 K/uL (1.20-3.40); Lymphocytes % (auto) 9.2 %; Mean Corpuscular Hemoglobin 29.4 pg (25.0-34.0); Mean Corpuscular Hgb Conc 32.4 g/dL (32.0-36.0); Mean Corpuscular Volume 90.7 fL (80.0-100.0); Mean Platelet Volume 10.7 fL (9.4-12.4); Monocytes # (auto) 0.95 K/uL (0.11-0.59); Monocytes % (auto) 10.7 %; Neutrophils # (auto) 6.98 K/uL (1.40-6.50); Neutrophils % (auto) 78.3 %; Platelet Count 211 K/uL (130-400); RDW Standard Deviation 46.8 fL (36.4-46.3); Red Blood Count 4.97 M/uL (4.70-6.10); White Blood Count 8.92 K/ul (4.8-10.8)
[2023-09-01 10:50] LABS: Albumin Level 3.9 gm/dl (3.4-5.0); BUN Creatinine Ratio 15.5 (10-20); Bilirubin Direct 0.1 mg/dl (0-0.2); Bilirubin,Total 0.6 mg/dl (0.2-1.0); Calcium 8.8 mg/dl (8.6-10.3); Creatinine Clr Calc Pharmacy 61.7 ml/min; Est GFR (African American) 86.9 ml/min; Potassium 3.8 mmol/L (3.5-5.1); Total Protein 6.9 gm/dl (6.0-8.3)
[2023-09-01 10:53] LABS: INR 0.9 (0.9-1.1); Partial Thromboplastin Time 29 Seconds (21-31); Prothrombin Time 10.3 Seconds (9.0-12.0)
--- NOTE | 2023-09-01 10:53 | Electrocardiogram Report ---
Test Reason : Blood Pressure : / mmHG Vent. Rate : 080 BPM Atrial Rate : 080 BPM P-R Int : 164 ms QRS Dur : 166 ms QT Int : 452 ms P-R-T Axes : 052 099 016 degrees QTc Int : 521 ms Normal sinus rhythm Right bundle branch block Abnormal ECG When compared with ECG of 15-JUN-2023 01:36, No significant change was found Confirmed by Elvis Kaiser ([id number]) on 09/01/2023 10:53:18 AM Referred By: Confirmed By:Elvis Kaiser
--- NOTE | 2023-09-01 11:13 | XRay Report ---
CHEST AND ABDOMEN 2 VIEWS HISTORY: cough constipation COMPARISON: Abdomen and pelvis CT 06/17/2023. FINDINGS: The cardiac silhouette remains mildly enlarged. The lungs are clear. No pleural effusions. No pneumothorax. No acute fractures. No pneumoperitoneum. No pneumatosis. Mild S-shaped scoliosis and degenerative changes within the lumbar spine. No dilated loops of bowel to suggest an obstruction. V ascular calcifications are noted. No renal or ureteral calculi. No significant fecal retention. IMPRESSION: No acute cardiopulmonary process. No evidence for bowel obstruction. ACT 112: Negative or not required by law. Electronically signed by: Wyatt Feliciano M.D. 09/01/2023 11:12 AM
[2023-09-01 11:36] LABS: Adenovirus PCR Not Detected (NotDetected); Bordetella parapertussis PCR Not Detected (NotDetected); Bordetella pertussis PCR Not Detected (NotDetected); Chlamydia pneumoniae PCR Not Detected (NotDetected); Coronavirus 229E PCR Not Detected (NotDetected); Coronavirus CoV-2 (COVID19)PCR Not Detected (NotDetected); Coronavirus HKU1 PCR Not Detected (NotDetected); Coronavirus NL63 PCR Not Detected (NotDetected); Coronavirus OC43PCR Not Detected (NotDetected); Human Metapneumovirus PCR Not Detected (NotDetected); Influenza A PCR Not Detected (NotDetected); Influenza B PCR Not Detected (NotDetected); Mycoplasma pneumoniae PCR Not Detected (NotDetected); Parainfluenza Virus 1 PCR Not Detected (NotDetected); Parainfluenza Virus 2 PCR Not Detected (NotDetected); Parainfluenza Virus 3 PCR DETECTED (NotDetected); Parainfluenza Virus 4 PCR Not Detected (NotDetected); Respiratory Syncytial VirusPCR Not Detected (NotDetected); Rhinovirus/Enterovirus PCR Not Detected (NotDetected)
--- NOTE | 2023-09-01 13:58 | History & Physical Report ---
Date of Service September 01, 2023 Assessment & Plan (1) Hematochezia: Plan: BRB and mucousy stool every 20 to 30 minutes on the evening of 08/30; abdominal cramping and nausea just prior to this Hgb 14.6 on arrival Hx of rectal bleeds with the last being 3 years ago Recent colonoscopy on 07/16/2023 revealed internal hemorrhoids, and diverticulosis in the sigmoid colon Suspect this could be an acute aggravation of either the diverticulosis in the setting of viral infection, or internal hemorrhoids Hold meloxicam Trend H&H q6h Gentle IVF with LR at 80mL/hr x 2 Clear liquid diet for now advance as tolerated No hx of blood transfusion Type and screen; blood informed consent obtained if needed A.m. CBC, BMP, mag (2) Parainfluenza: Plan: Cough, fever, and URI symptoms started last week Parainfluenza (+) on arrival Supportive care Acetaminophen as needed for pain/fever (3) Mixed hyperlipidemia: Plan: Continue atorvastatin (4) Polymyalgia rheumatica: Plan: Continue daily steroids (5) Cardiac arrhythmia: Plan: Hx of cardiac arrhythmia Continue flecainide; caution use of QT prolonging agents Continuous telemetry monitoring (6) Internal hemorrhoids: (7) Diverticulosis: Plan [facility]: [facility] Clear liquid diet for now and advance as tolerated VTE PPx: SCDs (hold chemical DVT PPx in setting of hematochezia) History of Present Illness Chief Complaint: Rectal bleed Primary Care Provider: Angelica Persaud MD Richard is a 78-year-old male with PMH of HFrEF, osteoarthritis, PMR, steroid- induced osteoporosis, cardiomyopathy, rectal bleeding, IBS, HTN, and HLD. He presented for BRB in rectum every 30 minutes starting just before midnight on 08/30. Patient reports there was very little stool with these episodes of bleeding, and it was mainly just bright red blood and mucus in the toilet. Patient has had ongoing GI problems over the past 3 months (difficulty with bowel movements in June), but this is the first episode of bright red blood in the toilet. He does have a history of rectal bleeding x 2, with the last occurring 3 years ago, and the first occurring 12 years ago. It was unclear what precipitated this in the past. Patient did have a recent colonoscopy with Dr. De Leon in July 2023 which revealed diverticulosis and internal hemorrhoids. At present, patient endorses an intermittent burning sensation in his lower ab domen. He describes it as cramping rather than pain. He has taken famotidine recently, but this does not help with the cramping. Patient took all of his regular morning medications except for Augmentin and meloxicam. He started on Augmentin on Tuesday 08/29 for presumed URI, wet cough, and fever. He was negative for COVID, flu, and RSV at that time. Besides starting Augmentin, his only change recent medications was changing from lactulose to a generic last week. He takes lactulose for pain/discomfort when he is unable to move his bowels. He denies a history of smoking, tobacco use, and recent alcohol use. Patient is mildly hypertensive at 144 over 76 at time of admission; SpO2 93% on RA. ED course: ROS: Patient endorses low-grade fever (resolved), chills (resolved yesterday), wet cough, dizziness (secondary to inner ear problems), burning sensation and cramping in lower stomach bilaterally, nausea, and BRB in stool last night. Patient denies LOCKHART, chest pain, pleuritic CP, chest palpitations, SOB, vomiting, hematemesis, melena, dysuria, burning with urination, blood in the urine/stool, or N/T in arms or legs. Allergies Allergy/AdvReac Type Severity Reaction Status Date / Time Beta-Blockers Allergy palpitation Verified 08/30/23 09:33 (Beta-Adrenergic Bloc s hydroxychloroquine Allergy severe Verified 08/30/23 09:33 [From Plaquenil] rash/ GI bleed meclofenamic acid Allergy Unknown Verified 08/30/23 09:33 [From Meclomen] Home Medications Medication Instructions Recorded Confirmed Type amoxicillin 500 mg capsule 5,000 mg PO UD PRN dental 05/15/22 09/01/23 History appointments lisinopril 20 mg tablet 20 mg PO BID #180 tabs 07/30/22 09/01/23 Rx fluticasone propionate 50 1 spray intranasal DAILY PRN 08/28/22 09/01/23 Rx mcg/actuation nasal allergic rhinitis #16 grams spray,suspension amlodipine 5 mg tablet 5 mg PO QAM #90 tabs 05/20/23 09/01/23 Rx meloxicam 15 mg tablet 15 mg PO QAM #90 tabs 05/20/23 09/01/23 Rx prednisone 2.5 mg tablet 2.5 mg PO BID #180 tabs 05/20/23 09/01/23 Rx betamethasone dipropionate 0.05 % 1 applic topical DAILY PRN flares 06/14/23 09/01/23 History lotion atorvastatin 40 mg tablet 40 mg PO HS 06/17/23 09/01/23 History calcium carbonate-vitamin D3 600 1 tab PO QAM 06/17/23 09/01/23 History mg-125 unit tablet cholecalciferol (vitamin D3) 50 50 mcg PO BID 06/17/23 09/01/23 History mcg (2,000 unit) tablet (Vitamin D3) tamsulosin 0.4 mg capsule 0.4 mg PO HS 06/17/23 09/01/23 History flecainide 100 mg tablet 100 mg PO Q12H #180 tabs 06/27/23 09/01/23 Rx alendronate 70 mg tablet 70 mg PO Q7D 07/02/23 09/01/23 History famotidine 40 mg tablet 40 mg PO DAILY 08/20/23 09/01/23 History lactulose 10 gram oral packet 10 g PO TID #270 ea 08/20/23 09/01/23 Rx ketoconazole 2 % shampoo 1 applic topical .COMPLEX #120 mL 08/26/23 09/01/23 Rx lactulose 10 gram/15 mL oral 15 ml PO TID 30 days #1,350 mL 08/26/23 09/01/23 Rx solution amoxicillin 875 mg-potassium 1 tab PO BID #14 tabs 08/30/23 09/01/23 Rx clavulanate 125 mg tablet Past Med/Surg History Medical History History of anesthesia reaction "was given beta hilario under anesthesia and had allergic reaction">no trouble w/prior colonoscopies Anxiety Chronic HFrEF (heart failure with reduced ejection fraction) Osteoarthritis Chronic steroid use Polymyalgia rheumatica BPH w urinary obs/LUTS Cardiac arrhythmia currently on flecainidef/u [facility] cardi[facility] Steroid-induced osteoporosis Mixed hyperlipidemia Primary hypertension Surgical History History of esophagogastroduodenoscopy (EGD) Hx of colonoscopy H/O oral surgery H/O total knee replacement rt/lt History of hernia repair Hx of tonsillectomy 1984 Family History Mother Myocardial infarction Heart disease Father Myocardial infarction Diabetes Sister Myocardial infarction Diabetes Brother Diabetes Stroke Grandfather (Maternal) Stroke Hypertension Denies family history of Ovarian cancer Prostate cancer Breast cancer Colorectal cancer Social History Smoking Status: Never smoker Second Hand Exposure: No; Do You Dip or Chew Tobacco: No; Hx Alcohol Use: No Hx Substance Use: No Preferred Language: Tajik Communication Ability: Effective Wellness Trainer Required: No Beliefs That Will Affect Care: None marital status: Current Living Situation: Spouse current occupational status: retired How many Children do You have: 2 Feels Safe at Home: Yes Childhood Exposure to Second-Hand Smoke: No during the past year weight has: remained stable Dental Care, Regularly: Yes Physical Activity Frequency: 3-4 Times per Week Seatbelt Use: always Sunscreen Use: No Assistive Devices: Hearing Aid - Bilateral Review of Systems Review of Systems: See HPI above Physical Exam Physical Exam: General: no acute distress; pleasant affect; non-toxic appearing; well- nourished; cooperative; 93% SpO2 on RA HEENT: normocephalic, atraumatic; no scleral icterus; PERRLA; moist mucus membrane; vision intact; hearing aids in place Neck: supple; no lymphadenopathy; trachea midline Skin: warm, dry without signs of tenting; no cyanosis; no rashes, bruising, lesions, or erythema noted CV: chest wall NTP; RRR; S1/S2 normal; no murmurs/rubs/gallops; pulses intact and symmetric at radial, DP, and PT Lungs: no acute respiratory distress; symmetrical chest wall expansion; clear breath sounds across all lung mccarthy w/o adventitious sounds; no wheezing ABD: Soft, LLQ is mildly tender to palpation; BS present; no rebound/guarding; no distention; no signs of active bleeding or bruising on the abdomen or flank MSK: no tics or fasciculations; no edema noted in the LEs b/l, nonerythematous Neuro: A&Ox3; normal mood and affect; fluent speech; no focal deficits; sensation grossly intact in the LEs b/l Results & Data Results & Data Vital Signs (Past 12 Hours) Vital Signs Temp Pulse Pulse Resp BP BP Pulse Ox 09/01/23 13:00 72 18 144/76 H 93 09/01/23 11:29 69 17 122/67 91 09/01/23 10:19 72 09/01/23 09:58 76 17 96 09/01/23 09:58 74 18 150/83 H 97 09/01/23 09:33 36.6 C 86 18 107/68 96 O2 Del Method 09/01/23 13:00 Room Air 09/01/23 11:29 Room Air 09/01/23 10:19 09/01/23 09:58 Room Air 09/01/23 09:58 Room Air 09/01/23 09:33 Laboratory Results Abnormal lab results 09/01/23 09/01/23 Range/Units 09:55 10:26 RDW Std Deviation 46.8 H (36.4-46.3) fL Neut # (Auto) 6.98 H (1.40-6.50) K/uL Lymph # (Auto) 0.82 L (1.20-3.40) K/uL [place] # (Auto) 0.95 H (0.11-0.59) K/uL Parainfluenza 3 (PCR) DETECTED A (NotDetected) Diagnostic Findings Chest/Abdomen X-ray 09/01/23 10:19 CHEST AND ABDOMEN 2 VIEWS HISTORY: cough constipation COMPARISON: Abdomen and pelvis CT 06/17/2023. FINDINGS: The cardiac silhouette remains mildly enlarged. The lungs are clear. No pleural effusions. No pneumothorax. No acute fractures. No pneumoperitoneum. No pneumatosis. Mild S-shaped scoliosis and degenerative changes within the lumbar spine. No dilated loops of bowel to suggest an obstruction. Vascular calcifications are noted. No renal or ureteral calculi. No significant fecal retention. IMPRESSION: No acute cardiopulmonary process. No evidence for bowel obstruction. ACT 112: Negative or not required by law. Electronically signed by: Wyatt Feliciano M.D. 09/01/2023 11:12 AM ECG Additional Comments: ECG revealed NSR at 80 bpm and RBBB; QTc 521 (caution use of QT prolonging agents) Code Status & VTE Plan Code Status Full code VTE Prophylaxis Plan VTE Prophylaxis will be ordered: Yes Supervising Physician Co-Signing Physician Notes The patient was seen by me. The chart was reviewed. Case discussed with MEKA Hairston. Agree with assessment and plan PG Care Time/CCT Total # of Minutes Spent Total Time Spent with Patient: Total time spent is greater than 50% in coordination of care (as documented) at patient's floor/unit and/or counseling patient: Coding [place] [address] INT INP/OBS CARE 2/55MIN Patient Type Established Medical Decision Making Moderate Complexity Diagnoses Hematochezia K92.1 Parainfluenza B34.8 Mixed hyperlipidemia E78.2 Polymyalgia rheumatica M35.3 Cardiac arrhythmia I49.9 Internal hemorrhoids K64.8 Diverticulosis K57.90
--- NOTE | 2023-09-01 14:56 | Emergency Department Note ---
History of Present Illness General Chief complaint: Rectal Bleed Stated complaint: RECTAL BLEEDING Time Seen by Provider: 09/01/23 09:45 History of Present Illness Provider Complaint: + gross hematochezia Onset (ago): 1 day(s) Pain Consistency: + constant Context: + history of GI bleed, + hemorrhoids and + medication/supplement use (Recently put on amoxicillin for a URI after his COVID RSV and influenza screen came back negative by his PCP); no liver disease, no known esophageal varices or no anticoagulant use Associated symptoms: no abdominal pain, no nausea, no vomiting, no epistaxis, no fever, no chills, no headaches, no rash or no shortness of breath Home Medications Medication Instructions Recorded Confirmed Type amoxicillin 500 mg capsule 5,000 mg PO UD PRN dental 05/15/22 09/01/23 History appointments lisinopril 20 mg tablet 20 mg PO BID #180 tabs 07/30/22 09/01/23 Rx fluticasone propionate 50 1 spray intranasal DAILY PRN 08/28/22 09/01/23 Rx mcg/actuation nasal allergic rhinitis #16 grams spray,suspension amlodipine 5 mg tablet 5 mg PO QAM #90 tabs 05/20/23 09/01/23 Rx meloxicam 15 mg tablet 15 mg PO QAM #90 tabs 05/20/23 09/01/23 Rx prednisone 2.5 mg tablet 2.5 mg PO BID #180 tabs 05/20/23 09/01/23 Rx betamethasone dipropionate 0.05 % 1 applic topical DAILY PRN flares 06/14/23 09/01/23 History lotion atorvastatin 40 mg tablet 40 mg PO HS 06/17/23 09/01/23 History calcium carbonate-vitamin D3 600 1 tab PO QAM 06/17/23 09/01/23 History mg-125 unit tablet cholecalciferol (vitamin D3) 50 50 mcg PO BID 06/17/23 09/01/23 History mcg (2,000 unit) tablet (Vitamin D3) tamsulosin 0.4 mg capsule 0.4 mg PO HS 06/17/23 09/01/23 History flecainide 100 mg tablet 100 mg PO Q12H #180 tabs 06/27/23 09/01/23 Rx alendronate 70 mg tablet 70 mg PO Q7D 07/02/23 09/01/23 History famotidine 40 mg tablet 40 mg PO DAILY 08/20/23 09/01/23 History lactulose 10 gram oral packet 10 g PO TID #270 ea 08/20/23 09/01/23 Rx ketoconazole 2 % shampoo 1 applic topical .COMPLEX #120 mL 08/26/23 09/01/23 Rx lactulose 10 gram/15 mL oral 15 ml PO TID 30 days #1,350 mL 08/26/23 09/01/23 Rx solution amoxicillin 875 mg-potassium 1 tab PO BID #14 tabs 08/30/23 09/01/23 Rx clavulanate 125 mg tablet Allergies Allergy/AdvReac Type Severity Reaction Status Date / Time Beta-Blockers Allergy palpitation Verified 08/30/23 09:33 (Beta-Adrenergic Bloc s hydroxychloroquine Allergy severe Verified 08/30/23 09:33 [From Plaquenil] rash/ GI bleed meclofenamic acid Allergy Unknown Verified 08/30/23 09:33 [From Meclomen] Past Med/Surg History Medical History History of anesthesia reaction "was given beta hilario under anesthesia and had allergic reaction">no trouble w/prior colonoscopies Anxiety Chronic HFrEF (heart failure with reduced ejection fraction) Osteoarthritis Chronic steroid use Polymyalgia rheumatica BPH w urinary obs/LUTS Cardiac arrhythmia currently on flecainidef/u [facility] cardiology Steroid-induced osteoporosis Mixed hyperlipidemia Primary hypertension Surgical History History of esophagogastroduodenoscopy (EGD) Hx of colonoscopy H/O oral surgery H/O total knee replacement rt/lt History of hernia repair Hx of tonsillectomy 1984 Family History Mother Myocardial infarction Heart disease Father Myocardial infarction Diabetes Sister Myocardial infarction Diabetes Brother Diabetes Stroke Grandfather (Maternal) Stroke Hypertension Denies family history of Ovarian cancer Prostate cancer Breast cancer Colorectal cancer Social History Smoking Status: Never smoker Second Hand Exposure: No; Do You Dip or Chew Tobacco: No; Hx Alcohol Use: No Hx Substance Use: No Preferred Language: Greek Communication Ability: Effective [employer] Required: No Beliefs That Will Affect Care: None marital status: Current Living Situation: Spouse current occupational status: retired How many Children do You have: 2 Feels Safe at Home: Yes Childhood Exposure to Second-Hand Smoke: No during the past year weight has: remained stable Dental Care, Regularly: Yes Physical Activity Frequency: 3-4 Times per Week Seatbelt Use: always Sunscreen Use: No Assistive Devices: Hearing Aid - Bilateral Physical Exam 2 Vital Signs: Vital Signs - 24 hr 09/01/23 09:33 09/01/23 09:58 09/01/23 09:58 Temperature 36.6 C Temperature Source Temporal Artery Sc an Pulse Rate 86 76 Pulse Rate [Apical ] 74 Pulse Strength [Ap ical] Respiratory Rate 18 18 17 Respiratory Effort / Characteristics Non-Labored Sponta neous Respiratory Depth Normal Respiratory Patter n Blood Pressure 107/68 Blood Pressure [Ri ght Arm] 150/83 H Blood Pressure Iris n 81 Blood Pressure Iris n [Right Arm] 105 Blood Pressure Pos ition [Right Arm] Semi-fowlers Pulse Oximetry 96 97 96 Oxygen Delivery Me thod Room Air Room Air Sepsis Recent Feve r Within 48 Hours No Sepsis New/Unexpla ined Change in Men nickie Status N/A Sepsis Action Take n by Nursing No Action Required 09/01/23 10:19 09/01/23 11:29 09/01/23 13:00 Temperature Temperature Source Pulse Rate 72 Pulse Rate [Apical ] 69 72 Pulse Strength [Ap ical] Respiratory Rate 17 18 Respiratory Effort / Characteristics Non-Labored Sponta neous Non-Labored Sponta neous Respiratory Depth Normal Normal Respiratory Patter n Blood Pressure Blood Pressure [Ri ght Arm] 122/67 144/76 H Blood Pressure Iris n Blood Pressure Iris n [Right Arm] 85 98 Blood Pressure Pos ition [Right Arm] Semi-fowlers Semi-fowlers Pulse Oximetry 91 93 Oxygen Delivery Me thod Room Air Room Air Sepsis Recent Feve r Within 48 Hours Sepsis New/Unexpla ined Change in Men nickie Status Sepsis Action Take n by Nursing 09/01/23 15:47 09/01/23 15:49 Temperature Temperature Source Pulse Rate 74 Pulse Rate [Apical ] 72 Pulse Strength [Ap ical] Normal Respiratory Rate 19 Respiratory Effort / Characteristics Non-Labored Sponta neous Respiratory Depth Normal Respiratory Patter n Regular Blood Pressure Blood Pressure [Ri ght Arm] 166/81 H Blood Pressure Iris n Blood Pressure Iris n [Right Arm] 109 Blood Pressure Pos ition [Right Arm] Pulse Oximetry 93 Oxygen Delivery Me thod Room Air Sepsis Recent Feve r Within 48 Hours Sepsis New/Unexpla ined Change in Men nickie Status Sepsis Action Take n by Nursing Physical Exam: Physical Exam GENERAL: She is oriented to person, place, and time. She appears well-developed and well-nourished. She does not appear distressed. HENT: Exam performed. -Head: Normocephalic and atraumatic. -Right Ear: External ear normal. No mastoid erythema -Left Ear: External ear normal. No mastoid erythema -Mouth/Throat: The oropharynx is clear and moist. No trismus in the jaw. No dental abscesses or uvula swelling. No oropharyngeal exudate or tonsillar abscesses. EYES: Conjunctivae and EOM are normal.Right eye exhibits no discharge. Left eye exhibits no discharge. No scleral icterus. NECK: Normal range of motion. Neck supple. No JVD present. No tracheal deviation and normal range of motion present. CV: Normal rate, regular rhythm, normal heart sounds and intact distal pulses. There is no peripheral edema. Palpable radial pulses bue. PULM/CHEST: Effort normal and breath sounds normal. No respiratory distress. No stridor. She has no wheezes. She has no rales. -Chest Wall: She exhibits no tenderness. ABD: The abdomen is soft. Bowel sounds are normal. She has no distension. No mass is present. There is no tenderness. There is no rebound, no guarding, no Cerna's sign and no tenderness at McBurney's point. Rovsig negative MUSC/SKEL: Normal range of motion. There is no peripheral edema, tenderness or deformity. NEURO: Motor and sensation grossly intact. SKIN: Skin is warm and dry. She is not diaphoretic. PSYCH: She has a normal mood and affect. Behavior is normal. Judgment and thought content normal. Course Course 944: The patient was evaluated in room C6. A complete history and physical exam was performed Cardiac monitoring: An order was placed for continuous cardiac monitoring. The monitor shows a rate of 80 with sinus rhythm interpreted by me 1320: Vital signs stable. Labs within normal limits. Patient has parainfluenza. Patient was told he could stop taking the amoxicillin. It is thought that the patient is having diverticular bleed which could be triggered by excessive bowel movements since patient's been on amoxicillin prescribed by his PCP. Discussed with patient about inpatient observation versus outpatient follow-up. Patient elects for outpatient follow-up which I think is reasonable. Patient was told to stop taking the amoxicillin as he has a viral illness. He was informed to take probiotics and eat yogurt. DISCHARGE - Plan of care discussed with patient and questions answered. The patient was given both verbal and printed discharge instructions. The patient verbalized understanding and ability to comply. The patient is to seek outpatient follow up as noted in the discharge instructions. The patient verbalized understanding and ability to comply. The patient is discharged in stable condition. The patient was instructed to return for worsening symptoms. 1340: Vital signs stable. Nursing now informs me that the patient wants to be admitted for GI bleed. Will contact [facility] hospitalist team. Administered Medications Lactated Ringer's (Lr) 1,000 mls @ 80 mls/hr IV .[id number] YARI Stop: 09/02/23 15:29 Last Admin: 09/01/23 14:57 Dose: 80 mls/hr Documented By: [facility] Medical Decision Making Laboratory Data Attestation: I reviewed the patient's lab results. 09/01/23 09:55 09/01/23 09:55 Lab Results 09/01/23 09/01/23 Range/Units 09:55 10:26 WBC 8.92 (4.8-10.8) K/ul RBC 4.97 (4.70-6.10) M/uL Hgb 14.6 (14.0-18.0) g/dl Hct 45.1 (42.0-52.0) % MCV 90.7 (80.0-100.0) fL MCH 29.4 (25.0-34.0) pg MCHC 32.4 (32.0-36.0) g/dL RDW Std Deviation 46.8 H (36.4-46.3) fL RDW Coeff of Clark 14.0 (11.5-14.5) % Plt Count 211 (130-400) K/uL MPV 10.7 (9.4-12.4) fL Immature Gran % (Auto) 0.4 % Neut % (Auto) 78.3 % Lymph % (Auto) 9.2 % [place] % (Auto) 10.7 % Eos % (Auto) 1.1 % Baso % (Auto) 0.3 % Neut # (Auto) 6.98 H (1.40-6.50) K/uL Lymph # (Auto) 0.82 L (1.20-3.40) K/uL [place] # (Auto) 0.95 H (0.11-0.59) K/uL Eos # (Auto) 0.10 (0.00-0.50) K/uL Baso # (Auto) 0.03 (0.00-0.20) K/uL Immature Gran # (Auto) 0.04 (0.01-0.20) K/uL PT 10.3 (9.0-12.0) Seconds INR 0.9 (0.9-1.1) APTT 29 (21-31) Seconds PTT Ratio 1.0 Sodium 139 (136-145) mmol/L Potassium 3.8 (3.5-5.1) mmol/L Chloride 105 (98-107) mmol/L Carbon Dioxide 24 (21-32) mmol/L Anion Gap 10 (3-11) BUN 15 (6-23) mg/dl Creatinine 0.97 (0.6-1.4) mg/dl Est Cr Clr Drug Dosing 61.7 ml/min Est GFR ( Amer) 86.9 ml/min Est GFR (Non-Af Amer) 75.0 ml/min BUN/Creatinine Ratio 15.5 (10-20) Glucose 96 (70-99(Fasting)) mg/dl Calcium 8.8 (8.6-10.3) mg/dl Total Bilirubin 0.6 (0.2-1.0) mg/dl Direct Bilirubin 0.1 (0-0.2) mg/dl AST 26 (13-39) U/L ALT 27 (7-52) U/L Alkaline Phosphatase 65 (34-104) U/L Total Protein 6.9 (6.0-8.3) gm/dl Albumin 3.9 (3.4-5.0) gm/dl Lipase 20 (11-82) U/L Adenovirus (PCR) Not Detected (NotDetected) B. pertussis DNA (PCR) Not Detected (NotDetected) B.parapertussis DNA PCR Not Detected (NotDetected) C. pneumoniae DNA (PCR) Not Detected (NotDetected) Coronavirus OC43 (PCR) Not Detected (NotDetected) Coronavirus HKU1 (PCR) Not Detected (NotDetected) Coronavirus 229E (PCR) Not Detected (NotDetected) SARS-CoV-2 (PCR) Not Detected (NotDetected) Coronavirus NL63 (PCR) Not Detected (NotDetected) Human Metapneumovir PCR Not Detected (NotDetected) Influenza Type A (PCR) Not Detected (NotDetected) Influenza Type B (PCR) Not Detected (NotDetected) M. pneumoniae (PCR) Not Detected (NotDetected) Parainfluenza 1 (PCR) Not Detected (NotDetected) Parainfluenza 2 (PCR) Not Detected (NotDetected) Parainfluenza 3 (PCR) DETECTED A (NotDetected) Parainfluenza 4 (PCR) Not Detected (NotDetected) RSV (PCR) Not Detected (NotDetected) Entero/Rhino (PCR) Not Detected (NotDetected) Blood Type O Negative Antibody Screen NEGATIVE ECG Data Attestation: I personally reviewed and interpreted this ECG as follows: Rate (beats per minute): 80 Rhythm: normal sinus Findings: + RBBB; no ST depression or no ST elevation Additional Comments: QRS 166 QTc 521. [facility] Narrative 0945: The patient was evaluated in room C6. A complete history and physical exam was performed Cardiac monitoring: An order was placed for continuous cardiac monitoring. The monitor shows a rate of 80 with sinus rhythm interpreted by me 1320: Vital signs stable. Labs within normal limits. Patient has parainfluenza. Patient was told he could stop taking the amoxicillin. It is thought that the patient is having diverticular bleed which could be triggered by excessive bowel movements since patient's been on amoxicillin prescribed by his PCP. Discussed with patient about inpatient observation versus outpatient follow-up. Patient elects for outpatient follow-up which I think is reasonable. Patient was told to stop taking the amoxicillin as he has a viral illness. He was informed to take probiotics and eat yogurt. DISCHARGE - Plan of care discussed with patient and questions answered. The patient was given both verbal and printed discharge instructions. The patient verbalized understanding and ability to comply. The patient is to seek outpatient follow up as noted in the discharge instructions. The patient verbalized understanding and ability to comply. The patient is discharged in stable condition. The patient was instructed to return for worsening symptoms. 1340: Vital signs stable. Nursing now informs me that the patient wants to be admitted for GI bleed. Will contact [facility] hospitalist team. Impression & Plan Hematochezia, Parainfluenza Discharge Plan Visit Data Chief Complaint: Rectal Bleed Stated Complaint: RECTAL BLEEDING ED Provider: Jesus Thomas Discharge Problem: Hematochezia, Parainfluenza Patient Disposition: Home - Self-Care Discharge Instructions Krames/Other Patient Handouts: ED Lower GI Bleeding (Stable), ED Viral Syndrome (Adult) Activity Restrictions/Additional Instructions: Stop taking the amoxicillin you are prescribed. Begin taking probiotics/any yogurt. Return to emergency department if you develop chest pain, difficulty breathing, dizziness, feeling you are going to pass out, lose consciousness, or symptoms worsen. Forms Stand Alone Forms: My [facility], Important Visit Information Prescriptions Prescriptions: No Action lisinopril 20 mg tablet 20 mg PO BID Qty: 180 3RF amlodipine 5 mg tablet 5 mg PO QAM Qty: 90 3RF meloxicam 15 mg tablet 15 mg PO QAM Qty: 90 3RF prednisone 2.5 mg tablet 2.5 mg PO BID Qty: 180 3RF flecainide 100 mg tablet 100 mg PO Q12H Qty: 180 3RF lactulose 10 gram/15 mL solution 15 ml PO TID 30 Days Qty: 1350 0RF ketoconazole 2 % shampoo 1 applic topical .COMPLEX Qty: 120 2RF Rx Instructions: Wash scalp 2 times weekly. Let sit for 3-5 minutes prior to rinsing.; fluticasone propionate 50 mcg/actuation spray,suspension 1 spray intranasal DAILY PRN (Reason: allergic rhinitis) Qty: 16 1RF Rx Instructions: administer into each nostril amoxicillin 500 mg capsule 5,000 mg PO UD PRN (Reason: dental appointments) Patient Comments: pt states he take 6 tabs before procedure and 5 after procedure Rx Instructions: PRIOR TO DENTAL APPTS amoxicillin-pot clavulanate 875-125 mg tablet 1 tab PO BID Qty: 14 0RF famotidine 40 mg tablet 40 mg PO DAILY lactulose 10 gram packet 10 g PO TID Qty: 270 1RF Rx Instructions: mix one packet in a liquid beverage and take orally. betamethasone dipropionate 0.05 % lotion 1 applic topical DAILY PRN (Reason: flares) Rx Instructions: Apply to areas of the scalp once daily for up to 2 weeks as needed for flaring. alendronate 70 mg tablet 70 mg PO Q7D Rx Instructions: 70 mg orally 1 po weekly; Saturday calcium carbonate-vitamin D3 600-125 mg-unit Tablet 1 tab PO QAM cholecalciferol (vitamin D3) [Vitamin D3] 50 mcg (2,000 unit) Tablet 50 mcg PO BID atorvastatin 40 mg tablet 40 mg PO HS tamsulosin 0.4 mg capsule 0.4 mg PO HS Referrals Referrals: Mauricio De Leon DO [Physician] - (Follow-up in 1-7 days.) Angelica Persaud MD [Primary Care Provider] - (Follow-up in 1-7 days.)
[2023-09-01] MEDS: LACTATED RINGER'S 1,000 ML IV SCH (14:57)
[2023-09-01 15:55] LABS: Hematocrit (blood only) 39.5 % (42.0-52.0)
[2023-09-01] MEDS ORDERED: FLUTICASONE PROPIONATE NA SPR 16 GM BTL PRN (17:39)
[2023-09-01] MEDS ORDERED: MELATONIN 3 MG TAB PO PRN (17:39)
[2023-09-01] MEDS ORDERED: BETAMETHASONE VAL 0.1% CR 15 GM TOP PRN (17:52)
[2023-09-01] MEDS: LACTULOSE SYRUP 10 GM/15 ML BTL 960 ML PO SCH (19:17)
[2023-09-01] MEDS: predniSONE 2.5 MG TAB PO SCH (20:17)
[2023-09-01] MEDS: lisinopril 20 MG TAB PO SCH (20:17)
[2023-09-01] MEDS: FLECAINIDE ACETATE 100 MG TABLET PO SCH (20:18)
[2023-09-01] MEDS: ATORVASTATIN 40 MG TAB PO SCH (20:18)
[2023-09-01] MEDS: TAMSULOSIN HCL 0.4 MG CAP PO SCH (20:18)
[2023-09-01] MEDS ORDERED: LACTULOSE 10 GM PO SCH (21:00)
[2023-09-01 22:58] LABS: Hemoglobin 12.7 g/dl (14.0-18.0)
[2023-09-02] MEDS: MELATONIN 3 MG TAB PO PRN (01:47)
[2023-09-02] MEDS: ACETAMINOPHEN 325 MG TAB PO PRN (01:48)
[2023-09-02 04:47] LABS: Basophils # (auto) 0.02 K/uL (0.00-0.20); Basophils % (auto) 0.3 %; Eosinophils # (auto) 0.07 K/uL (0.00-0.50); Hemoglobin 11.8 g/dl (14.0-18.0); Immature Granulocytes # (auto) 0.02 K/uL (0.01-0.20); Immature Granulocytes % (auto) 0.3 %; Lymphocytes # (auto) 0.97 K/uL (1.20-3.40); Lymphocytes % (auto) 14.3 %; Mean Corpuscular Hemoglobin 29.9 pg (25.0-34.0); Mean Corpuscular Hgb Conc 32.8 g/dL (32.0-36.0); Mean Corpuscular Volume 91.1 fL (80.0-100.0); Mean Platelet Volume 10.5 fL (9.4-12.4); Monocytes # (auto) 0.78 K/uL (0.11-0.59); Monocytes % (auto) 11.5 %; Neutrophils # (auto) 4.92 K/uL (1.40-6.50); Neutrophils % (auto) 72.6 %; Platelet Count 186 K/uL (130-400); RDW Coefficient of Variation 14.1 % (11.5-14.5); RDW Standard Deviation 47.4 fL (36.4-46.3); Red Blood Count 3.95 M/uL (4.70-6.10); White Blood Count 6.78 K/ul (4.8-10.8)
[2023-09-02 05:07] LABS: BUN Creatinine Ratio 16.1 (10-20); Creatinine Clr Calc Pharmacy 68.8 ml/min; Est GFR (African American) 96.5 ml/min; Est GFR (Non-African American) 83.2 ml/min; Magnesium 1.8 mg/dl (1.7-2.4); Potassium 4.1 mmol/L (3.5-5.1)
[2023-09-02] MEDS: FAMOTIDINE 40 MG TABLET PO SCH (08:50)
[2023-09-02] MEDS: amLODIPine BESYLATE 5 MG TAB PO SCH (08:50)
--- NOTE | 2023-09-02 12:56 | Hospitalist Progress Note ---
Date of Service September 02, 2023 Assessment & Plan (1) Hematochezia: Plan: He appears to have a diverticular bleed. Will continue to monitor serial H&H. Continue clear liquids and IV fluids for now. He had a colonoscopy done in July of this year which revealed only diverticulosis and internal hemorrhoids. (2) Acute blood loss anemia: Plan: He has not required blood transfusion to date. Consent has been obtained however. Serial labs ordered. (3) Parainfluenza: Plan: Cough, fever, and URI symptoms started last week. Parainfluenza (+) on arrival. Supportive care (4) Weight loss: Plan: Significant weight loss over the past several months. CT scan done earlier this year may have shown metastatic disease involving the liver but was read as benign cysts. Will repeat abdomen CT scan again today, September 01. (5) Mixed hyperlipidemia: Plan: Stable continue atorvastatin (6) Polymyalgia rheumatica: Plan: Stable. Prednisone dependent (7) Cardiac arrhythmia: Plan: Stable. Continue flecainide. Telemetry Plan Anticipate eventual discharge to home when lower GI bleeding stops. Admission and Anticipated Discharge Date Admission Date: September 01, 2023 Subjective Alert and oriented. He continues to have bloody stools which appears to be due to diverticular bleeding. He states he has lost considerable weight recently and I reviewed his x-rays. In June he had abdominal CT scan which revealed what could be liver metastases. Will repeat abdomen/pelvic CT scan with contrast today, September 01. Hemoglobin has trended down slightly to 11.8 due to lower GI bleeding and probably a component of IV fluid dilution. Will repeat hemoglobin again this afternoon and daily thereafter. Continue clear liquid diet for now. Review of Systems 2 Review of Systems: Constitutional-no fever or chills. Significant weight loss over the past several months ENT-no blurred vision, no double vision, no epistaxis, no sore throat Respiratory-no cough, no wheezing, no shortness of breath Cardiac-no palpitations, no chest pain, no syncope GI-no nausea, vomiting, diarrhea, melena. He developed hematochezia yesterday, August 31 -no urinary retention, no urinary incontinence, no dysuria, no hematuria Musculoskeletal-no joint pain, no muscle tenderness Skin-no bruising, no rashes, no pruritus Neuro-no isolated weakness, no paresthesia Psych-no depression, no anxiety Physical Exam 2 Physical Exam: General-alert and oriented x3, no fever, no chills HEENT-head atraumatic and normocephalic, pupils equal and reactive to light, extraocular muscles intact Neck-no lymphadenopathy or thyromegaly, trachea midline Chest-clear to auscultation. No rales, wheezing or rhonchi Cardiac-regular rate and rhythm, normal S1 and S2 Abdomen-normal bowel sounds, no hepatosplenomegaly Extremities-no cyanosis, clubbing, or edema Neuro-cranial nerves II through XII intact, motor and sensory function within normal limits, strength symmetrical, no focal deficits Psych-normal affect, normal mood Results & Data Results & Data Vital Signs (Past 12 Hours) Vital Signs Temp Pulse Pulse Resp BP Pulse Ox O2 Del Method 09/02/23 11:29 37.0 C 80 19 94/61 L 91 Room Air 09/02/23 07:55 36.7 C 69 17 146/84 H 96 Room Air 09/02/23 07:09 59 L 09/02/23 03:12 36.8 C 57 L 20 100/60 94 Room Air 09/02/23 01:00 37.1 C 72 16 113/64 94 Room Air Laboratory Results 09/02/23 04:20 09/02/23 04:20 PG Care Time/CCT Total # of Minutes Spent Total Time Spent with Patient: Total time spent is greater than 50% in coordination of care (as documented) at patient's floor/unit and/or counseling patient: Coding Level of Care Code 62577 SUB INP/OBS CARE 3/50MIN Diagnoses Hematochezia K92.1 Acute blood loss anemia D62 Parainfluenza B34.8 Weight loss R63.4 Mixed hyperlipidemia E78.2 Polymyalgia rheumatica M35.3 Cardiac arrhythmia I49.9
[2023-09-02] MEDS: OPTIRAY 320 100ml IV ONE (14:10)
--- NOTE | 2023-09-02 14:43 | CT Scan Report ---
CT SCAN OF THE ABDOMEN AND PELVIS WITH IV CONTRAST CLINICAL HISTORY: Follow-up hepatic cysts. COMPARISON STUDY: Abdominal CT dated 06/17/2023. TECHNIQUE: Following the IV administration of 93 cc of Optiray 320, CT scan of the abdomen and pelvi s is performed from the lung bases to the proximal femora. Images are reviewed in the axial, sagittal , and coronal planes. IV contrast was administered without complication. A dose lowering technique wa s utilized adhering to the principles of ALARA. CT DOSE: 999. mGy.cm FINDINGS: Lung bases: The heart is normal in size and without pericardial effusion. The coronary arteries are d ensely calcified. There is bibasilar scarring/atelectasis. The lung bases are otherwise clear. Liver: The contrast-enhanced liver is normal in size, contour, and attenuation. There is no intrahepa tic biliary ductal dilatation. The hepatic veins and portal veins are patent. Scattered hepatic cysts are unchanged and measure up to 2.0 cm. Gallbladder: Unremarkable. Spleen: Normal in size and attenuation. Pancreas: Unremarkable. Adrenal glands: Unremarkable. Kidneys: The contrast enhanced kidneys are normal in size and without hydronephrosis. The kidneys enh ance symmetrically. A 1.5 cm exophytic cyst arises from the right upper pole. Additional subcentimete r cortical hypodensities also likely represent cysts but are too small for definitive characterizatio n. A punctate nonobstructing calculus is again seen in the left lower pole. Abdominal vasculature: The abdominal aorta is normal in course and caliber noting moderate to advance d atherosclerotic calcification. There is a 9.5 mm peripherally calcified splenic artery aneurysm. Bowel: There is moderate to advanced colonic diverticulosis without CT evidence of acute diverticulit is. No bowel obstruction is seen. The appendix is well-visualized and normal. Peritoneum: There is no intraperitoneal free air or abdominal ascites. There is a fat-containing umbi lical hernia. Lymphadenopathy: None. Pelvic viscera: The prostate gland is enlarged and heterogeneous. The bladder wall is thickened/trabe culated indicating chronic outlet obstruction. Small bladder diverticula measure up to 12 mm. There a re bilateral fat-containing groin hernias. Skeletal structures: The skeletal structures are osteopenic. There is moderate lumbosacral spondylosi s as well as mild scoliosis. No lytic or blastic lesions are seen. IMPRESSION: 1. No acute infectious or inflammatory findings are identified in the abdomen or pelvis. 2. Scattered hepatic cysts are unchanged. 3. Colonic diverticulosis without CT evidence of acute diverticulitis. 4. Additional findings as above. ACT 112: Negative or not required by law. Electronically signed by: Pool Mcclendon M.D. 09/02/2023 2:42 PM
[2023-09-02] MEDS ORDERED: BENZONATATE 100 MG CAPSULE PO PRN (19:29)
[2023-09-03 05:06] LABS: Basophils # (auto) 0.03 K/uL (0.00-0.20); Basophils % (auto) 0.4 %; Eosinophils # (auto) 0.17 K/uL (0.00-0.50); Eosinophils % (auto) 2.2 %; Hematocrit (blood only) 34.5 % (42.0-52.0); Hemoglobin 11.5 g/dl (14.0-18.0); Immature Granulocytes # (auto) 0.04 K/uL (0.01-0.20); Immature Granulocytes % (auto) 0.5 %; Lymphocytes # (auto) 0.61 K/uL (1.20-3.40); Lymphocytes % (auto) 8.1 %; Mean Corpuscular Hemoglobin 30.3 pg (25.0-34.0); Mean Corpuscular Hgb Conc 33.3 g/dL (32.0-36.0); Mean Corpuscular Volume 90.8 fL (80.0-100.0); Mean Platelet Volume 10.7 fL (9.4-12.4); Monocytes # (auto) 0.65 K/uL (0.11-0.59); Monocytes % (auto) 8.6 %; Neutrophils # (auto) 6.06 K/uL (1.40-6.50); Neutrophils % (auto) 80.2 %; Platelet Count 190 K/uL (130-400); RDW Coefficient of Variation 14.2 % (11.5-14.5); RDW Standard Deviation 47.4 fL (36.4-46.3); White Blood Count 7.56 K/ul (4.8-10.8)
[2023-09-03 05:13] LABS: BUN Creatinine Ratio 14.4 (10-20); Calcium 7.8 mg/dl (8.6-10.3); Creatinine Clr Calc Pharmacy 66.5 ml/min; Est GFR (African American) 95.1 ml/min; Est GFR (Non-African American) 82.1 ml/min; Potassium 3.9 mmol/L (3.5-5.1)
--- NOTE | 2023-09-03 12:13 | Discharge Summary ---
Date of Service September 03, 2023 Admission HPI Per Admitting Provider Richard is a 78-year-old male with PMH of HFrEF, osteoarthritis, PMR, steroid- induced osteoporosis, cardiomyopathy, rectal bleeding, IBS, HTN, and HLD. He presented for BRB in rectum every 30 minutes starting just before midnight on 08/30. Patient reports there was very little stool with these episodes of bleeding, and it was mainly just bright red blood and mucus in the toilet. Patient has had ongoing GI problems over the past 3 months (difficulty with bowel movements in June), but this is the first episode of bright red blood in the toilet. He does have a history of rectal bleeding x 2, with the last occ urring 3 years ago, and the first occurring 12 years ago. It was unclear what precipitated this in the past. Patient did have a recent colonoscopy with Dr. De Leon in July 2023 which revealed diverticulosis and internal hemorrhoids. At present, patient endorses an intermittent burning sensation in his lower abdomen. He describes it as cramping rather than pain. He has taken famotidine recently, but this does not help with the cramping. Patient took all of his regular morning medications except for Augmentin and meloxicam. He started on Augmentin on Tuesday 08/29 for presumed URI, wet cough, and fever. He was negative for COVID, flu, and RSV at that time. Besides starting Augmentin, his only change recent medications was changing from lactulose to a generic last week. He takes lactulose for pain/discomfort when he is unable to move his bowels. He denies a history of smoking, tobacco use, and recent alcohol use. Patient is mildly hypertensive at 144 over 76 at time of admission; SpO2 93% on RA. ED course: ROS: Patient endorses low-grade fever (resolved), chills (resolved yesterday), wet cough, dizziness (secondary to inner ear problems), burning sensation and cramping in lower stomach bilaterally, nausea, and BRB in stool last night. Patient denies LOCKHART, chest pain, pleuritic CP, chest palpitations, SOB, vomiting, hematemesis, melena, dysuria, burning with urination, blood in the urine/stool, or N/T in arms or legs. Principal Diagnosis Lower GI bleeding of diverticular etiology Discharge Exam General-alert and oriented x3, no fever, no chills HEENT-head atraumatic and normocephalic, pupils equal and reactive to light, extraocular muscles intact Neck-no lymphadenopathy or thyromegaly, trachea midline Chest-clear to auscultation. No rales, wheezing or rhonchi Cardiac-regular rate and rhythm, normal S1 and S2 Abdomen-normal bowel sounds, no hepatosplenomegaly Extremities-no cyanosis, clubbing, or edema Neuro-cranial nerves II through XII intact, motor and sensory function within normal limits, strength symmetrical, no focal deficits Psych-normal affect, normal mood Discharge Data Allergies Allergy/AdvReac Type Severity Reaction Status Date / Time Beta-Blockers Allergy palpitation Verified 08/30/23 09:33 (Beta-Adrenergic Bloc s hydroxychloroquine Allergy severe Verified 08/30/23 09:33 [From Plaquenil] rash/ GI bleed meclofenamic acid Allergy Unknown Verified 08/30/23 09:33 [From Meclomen] Consultations 09/01/23 13:32 ED Decision to Admit Stat Ordered Studies 09/02/23 12:26 CT abd pelvis IV con only Urgent Hospital Course (1) Hematochezia: Lower GI bleed of suspected diverticular etiology on admission. This appears to have now stopped spontaneously. Fortunately, he did not require blood transfusions. Diet has been advanced. He had a colonoscopy done in July of this year which revealed only diverticulosis and internal hemorrhoids. (2) Acute blood loss anemia: He has not required blood transfusion to date. Consent has been obtained however. Serial labs ordered. (3) Parainfluenza: Cough, fever, and URI symptoms started last week. Parainfluenza (+) on arrival. Supportive care. Now asymptomatic (4) Weight loss: Significant weight loss over the past several months. CT scan done earlier this year may have shown metastatic disease involving the liver but was read as benign cysts. Repeat abdomen CT scan obtained on 01/01 revealed stable hepatic cysts with no evidence of metastatic disease. (5) Mixed hyperlipidemia: Stable continue atorvastatin (6) Polymyalgia rheumatica: Stable. Prednisone dependent (7) Cardiac arrhythmia: Stable. Continue flecainide. Telemetry Plan Home todaySeptember 02 Total Time Total Time Spent Total Time Spent (In Minutes): 45 minutes Discharge Plan Discharge Items Patient Disposition: Home - Self-Care Reason For Visit: BRB IN STOOL, LOWER GI BLEED Discharge Diagnosis: Lower GI hemorrhage of suspected diverticular etiology Activity: Resume your previous activity Non-emergency contact: Primary Care Provider Call non-emergency contact if: your symptoms worsen Follow-up/Referrals: Angelica Persaud MD [Primary Care Provider] - Diet: Regular and Heart Healthy Addtl Attending Provider Instructions: All medications remain the same. Follow-up with primary care provider as soon as you can. Pending Studies at Discharge: No Stand-Alone Forms: My [facility], Smoking Cessation Medications and DC Order Prescriptions: Continued lisinopril 20 mg tablet 20 mg PO BID Qty: 180 3RF amlodipine 5 mg tablet 5 mg PO QAM Qty: 90 3RF meloxicam 15 mg tablet 15 mg PO QAM Qty: 90 3RF prednisone 2.5 mg tablet 2.5 mg PO BID Qty: 180 3RF flecainide 100 mg tablet 100 mg PO Q12H Qty: 180 3RF lactulose 10 gram/15 mL solution 15 ml PO TID 30 Days Qty: 1350 0RF ketoconazole 2 % shampoo 1 applic topical .COMPLEX Qty: 120 2RF Rx Instructions: Wash scalp 2 times weekly. Let sit for 3-5 minutes prior to rinsing.; fluticasone propionate 50 mcg/actuation spray,suspension 1 spray intranasal DAILY PRN (Reason: allergic rhinitis) Qty: 16 1RF Rx Instructions: administer into each nostril amoxicillin 500 mg capsule 5,000 mg PO UD PRN (Reason: dental appointments) Patient Comments: pt states he take 6 tabs before procedure and 5 after procedure Rx Instructions: PRIOR TO DENTAL APPTS amoxicillin-pot clavulanate 875-125 mg tablet 1 tab PO BID Qty: 14 0RF famotidine 40 mg tablet 40 mg PO DAILY lactulose 10 gram packet 10 g PO TID Qty: 270 1RF Rx Instructions: mix one packet in a liquid beverage and take orally. betamethasone dipropionate 0.05 % lotion 1 applic topical DAILY PRN (Reason: flares) Rx Instructions: Apply to areas of the scalp once daily for up to 2 weeks as needed for flarin g. alendronate 70 mg tablet 70 mg PO Q7D Rx Instructions: 70 mg orally 1 po weekly; Saturday calcium carbonate-vitamin D3 600-125 mg-unit Tablet 1 tab PO QAM cholecalciferol (vitamin D3) [Vitamin D3] 50 mcg (2,000 unit) Tablet 50 mcg PO BID atorvastatin 40 mg tablet 40 mg PO HS tamsulosin 0.4 mg capsule 0.4 mg PO HS Discharge Orders: Discharge Order (Routine); Ordered 09/03/23 Ordered By: Richard Moody Admission Data Admit Date/Time: 09/01/23 14:37 Attending Provider: Richard Moody Admit Provider: Richard Mooyd Primary Care Provider: Angelica Persaud Other Providers: Richard Moody Coding Level of Care Code 26040 INP/OBS DISCH >30 MIN Diagnoses Hematochezia K92.1 Acute blood loss anemia D62 Parainfluenza B34.8 Weight loss R63.4 Mixed hyperlipidemia E78.2 Polymyalgia rheumatica M35.3 Cardiac arrhythmia I49.9
== END 2023-09-03 13:26 | disposition home or self-care (01) ==
LOC: ED 09:32 → 2W 09:32